=== PATIENT | male | born 2000 | race Caucasian/White ===

== ENCOUNTER 2025-04-14 06:52 | Emergency (ER) | payer SELFPAY ==
[2025-04-14] VITALS (12 sets, daily range): BP systolic 103–132; BP diastolic 38–80; PULSE 97–112; RESP 14–24; TEMP 36.4–36.6; O2SAT 99–100
--- NOTE | ~2025-04-14 | XR_ITS ---
EXAMINATION: XR chest 2V 04/14/2025 07:52 INDICATION: Chest pain PROCEDURE: 2 view chest COMPARISON: No prior studies for comparison. FINDINGS: The lungs are clear. The cardiomediastinal silhouette is within normal limits. There are no pleural effusions. There is no pneumothorax suspected. IMPRESSION: 1: NO ACUTE CARDIOPULMONARY DISEASE. Reviewed, dictated and finalized at location A.
--- NOTE | ~2025-04-14 | CT_ITS ---
Clinical Indication: Tachycardia, dyspnea CT Scan of the Chest with Contrast: Technique: Contiguous sections were acquired throughout the chest after intravenous administration of 100 cc of Omnipaque 350. Dose reduction technique was used on this scan by utilizing automated expos ure control and iterative reconstruction technique. The dose-length product (DLP) was 246.54 mGy-cm. Findings: There is no evidence of any significant mediastinal, hilar or axillary lymphadenopathy. There is no f illing defect in the pulmonary arterial tree to suggest pulmonary embolus. There is no evidence of ao rtic dissection or aneurysm. There is no evidence of pleural or pericardial effusion. The lungs are clear. No pulmonary nodules or infiltrates are noted. Images through the upper abdomen reveal partially imaged splenomegaly. Impression: No evidence of pulmonary embolus, aortic dissection, or aortic aneurysm. Clear lungs. Partially imaged splenomegaly, of uncertain etiology. Reviewed, dictated and finalized at [facility]. Impression: No evidence of pulmonary embolus, aortic dissection, or aortic aneurysm. Clear lungs. Partially imaged splenomegaly, of uncertain etiology.
--- NOTE | 2025-04-14 06:55 | ECG_ITS ---
Test Date: 2025-04-14 06:59:29 Measurements Intervals [place] Rate: 107 P: 22 ME: 146 QRS: 53 QRSD: 102 T: 73 QT: 327 QTc: 438 Interpretive Statements SINUS TACHYCARDIA WITH OCCASIONAL ECTOPIC PREMATURE COMPLEXES MODERATE ST DEPRESSION [0.05+ mV ST DEPRESSION] No previous ECG available for comparison Electronically Signed On 04-14-2025 16:01:57 CDT by Matt Waldron M.D.
[2025-04-14 07:14] LABS: Basophils Percent Auto 0.5 % (0.2-1.2); Eosinophils Absolute Auto 0.1 K/mm3 (0-0.3); Eosinophils Percent Auto 1.3 % (0-4.4); Hematocrit 30.8 % (42.0-52.0); Hemoglobin 9.7 g/dL (14.0-18.0); Immature Granulocyte Absolute 0.02 K/mm3 (0.00-0.031); Immature Granulocyte Percent A 0.5 % (0-0.5); Lymphocytes Absolute Auto 1.34 K/mm3 (0.9-3.2); Lymphocytes Percent Auto 34.4 % (18.3-44.2); Mean Corpuscular HGB Conc 31.5 g/dl (32-36); Mean Corpuscular Hemoglobin 23.2 pg (26-34); Mean Corpuscular Volume 73.5 fl (80-100); Mean Platelet Volume 8.8 fl (7.4-10.4); Monocytes Absolute Auto 0.2 K/mm3 (0.1-0.6); Monocytes Percent Auto 5.7 % (2.6-8.5); Neutrophils Absolute Auto 2.2 K/mm3 (1.3-6.7); Neutrophils Percent Auto 57.6 % (45.5-73.1); Platelet Count Result 159 k/mm3 (150-375); Red Blood Count 4.19 M/mm3 (4.6-6.20); Red Cell Distribution Width 17.8 % (11.5-14.5); White Blood Count 3.9 K/mm3 (4.5-10.0)
[2025-04-14 07:24] LABS: Alanine Aminotransferase 15 U/L (6-50); Albumin Level 3.6 g/dL (3.5-5.1); Alkaline Phosphatase 74 U/L (38-126); Anion Gap 7 mmol/L (4-12); Aspartate Amino Transferase 23 U/L (17-59); Bilirubin,Total 0.8 mg/dL (0.2-1.3); Blood Urea Nitrogen 13 mg/dL (9-20); Calcium 8.3 mg/dL (8.4-10.2); Carbon Dioxide 24 mmol/L (22-30); Chloride 105 mmol/L (98-107); Estimated CRCL calculation 134 ml/min; Estimated Glomerular Filt Rate > 60; Glucose 109 mg/dL (65-110); Lipase 105 U/L (23-300); Potassium 4.5 mmol/L (3.4-5.0); Sodium 136 mmol/L (137-145)
[2025-04-14 07:35] LABS: INR 1.2; Prothrombin Time 15.6 Seconds (11.1-14.7)
[2025-04-14 07:36] LABS: Troponin I 0.029 ng/mL (0.000-0.034)
[2025-04-14 07:37] LABS: Partial Thromboplastin Time 32.8 Seconds (22.3-36.8)
--- NOTE | 2025-04-14 07:47 | ED_ITS ---
HPI - Chest Pain General Chief Complaint: Chest Pain Stated Complaint: substernal cp x 2.5 weeks Time Seen by Provider: 04/14/25 07:03 History of Present Illness HPI narrative: Patient states that for the last 2 weeks he has been noticing chest pain, he will also sweating some shortness of breath this is never happened to him before. No drug use or supplement use or energy drinks, only occasional marijuana. Related Data Allergies Allergy/AdvReac Type Severity Reaction Status Date / Time No Known Allergies Allergy Verified 04/14/25 06:55 Review of Systems 2 Review of Systems: All systems reviewed & are unremarkable except as noted in HPI and below Exam 2 Narrative: EXAMINATION OF ORGAN SYSTEMS/BODY AREAS: Constitutional: Vital signs per nursing GENERAL: Appears slightly anxious HEAD: Normal with no signs of head trauma. EYES: EOMI, conjunctiva normal ENT: Hearing grossly intact LUNGS: Nonlabored breathing. HEART: Tachycardic ABD: [Soft], [nontender to palpation] EXT: Normal range of motion SKIN: [No rashes or lesions.] NEURO: [Alert and oriented x 3. No gross focal sensory or strength deficits.] PSYCH: Anxious affect Course Vital Signs Vital signs: Vital Signs Temperature 97.9 F 04/14/25 06:51 Pulse Rate 112 H 04/14/25 06:51 Respiratory Rate 21 H 04/14/25 06:51 Blood Pressure 130/51 L 04/14/25 06:51 Pulse Oximetry 99 04/14/25 06:51 Oxygen Delivery Room Air 04/14/25 06:51 Temperature 97.6 F 04/14/25 11:15 Pulse Rate 101 H 04/14/25 11:15 Respiratory Rate 14 04/14/25 11:15 Blood Pressure 126/54 L 04/14/25 11:15 Pulse Oximetry 99 04/14/25 11:15 Oxygen Delivery Room Air 04/14/25 07:07 MDM - Chest Pain MDM Narrative Medical decision making narrative: Patient presenting with chest pain and shortness of breath ongoing for last 2 weeks with sweating, on exam he appears slightly anxious and slightly tachycardic. EKG my independent interpretation shows sinus tachycardia with PACs, rate 107, NH 146, QRS 102, QTC 390, normal axis, no obvious ST elevations, some ST depression in lateral leads. My differential includes anxiety, malignancy, thyroid, ACS, PE. Workup initiated. Two troponins within normal limits, repeat EKG at 9:42 a.m. on my independent interpretation shows sinus rhythm rate 98, NH 137, QRS 105, QTC 443, no significant ST elevation, same ST depression as before. D-dimer elevated so a CT PE obtained which does show splenomegaly. Labs are notable for low WBC, hemoglobin, platelet compared to normal healthy adult male, I did discuss this case with blacking wheel tender Dr Caceres, while he recommended additional labs and close follow-up in clinic which I have ordered and have discussed with the patient along with strict return precautions. He now tells me that he was sick recently and had gotten antibiotics for his dad for presumed pneumonia, had not seen a doctor for this. [place] test here was negative, I did let him know my concerns for that this could have been recent viral illness causing aplastic anemia or possible malignancy he needs to follow up with heme Onc. Patient agreeable to this plan. Strict return precautions discussed. At time of discharge he was resting comfortably in no distress with normal vital signs. Counseled to avoid contact sports. Patient expresses understanding Lab Data 04/14/25 07:06 04/14/25 07:06 Labs: Lab Results 04/14/25 04/14/25 04/14/25 Range/Units 07:06 07:06 08:47 WBC 3.9 L (4.5-10.0) K/mm3 RBC 4.19 L (4.6-6.20) M/mm3 Hgb 9.7 L (14.0-18.0) g/dL Hct 30.8 L (42.0-52.0) % MCV 73.5 L (80-100) fl MCH 23.2 L (26-34) pg MCHC 31.5 L (32-36) g/dl RDW 17.8 H (11.5-14.5) % Plt Count 159 (150-375) k/mm3 MPV 8.8 (7.4-10.4) fl Immature Gran % (Auto) 0.5 (0-0.5) % Neut % (Auto) 57.6 (45.5-73.1) % Lymph % (Auto) 34.4 (18.3-44.2) % [place] % (Auto) 5.7 (2.6-8.5) % Eos % (Auto) 1.3 (0-4.4) % Baso % (Auto) 0.5 (0.2-1.2) % Lymph # (Auto) 1.34 (0.9-3.2) K/mm3 [place] # (Auto) 0.2 (0.1-0.6) K/mm3 Eos # (Auto) 0.1 (0-0.3) K/mm3 Baso # (Auto) 0.0 (0.0-0.1) K/mm3 Abs Immat Gran (auto) 0.02 (0.00-0.031) K/mm3 Absolute Neuts (auto) 2.2 (1.3-6.7) K/mm3 Absolute Nucleated RBC 0.000 (0.0-0.012) K/mm3 Band Neutrophils % Not Reportable Nucleated RBC % 0.0 (0.0-0.2) % Platelet Estimate Adequate (Adequate) Hypochromasia 1+ Schistocytes None seen PT 15.6 H (11.1-14.7) Seconds INR 1.2 APTT 32.8 (22.3-36.8) Seconds D-Dimer 1.10 H Cancelled (<0.48) ug/mL Sodium 136 L (137-145) mmol/L Potassium 4.5 (3.4-5.0) mmol/L Chloride 105 (98-107) mmol/L Carbon Dioxide 24 (22-30) mmol/L Anion Gap 7 (4-12) mmol/L BUN 13 (9-20) mg/dL Creatinine 0.71 (0.7-1.3) mg/dL Estim Creat Clear Calc 134 ml/min Estimated GFR > 60 (59 - ) Glucose 109 (65-110) mg/dL Calcium 8.3 L (8.4-10.2) mg/dL Iron (49-181) ug/dL TIBC (265-497) ug/dL % Saturation Total Bilirubin 0.8 (0.2-1.3) mg/dL AST 23 (17-59) U/L ALT 15 (6-50) U/L Alkaline Phosphatase 74 (38-126) U/L Lactate Dehydrogenase (120-246) U/L Troponin I 0.029 (0.000-0.034) ng/mL Total Protein 8.0 (6.3-8.2) g/dL Albumin 3.6 (3.5-5.1) g/dL Lipase 105 (23-300) U/L Vitamin B12 (239-931) pg/mL Folate (2.76->20) ng/mL TSH (Reflex) 3.280 (0.465-4.68) uIU/mL Urine Opiates Screen Negative (Negative) Urine Methadone Screen Negative (Negative) Ur Barbiturates Screen Negative (Negative) Ur Phencyclidine Scrn Negative (Negative) Ur Amphetamine Screen Negative (Negative) U Benzodiazepines Scrn Negative (Negative) Urine Cocaine Screen Negative (Negative) U Cannabinoids Screen Positive A (Negative) Monoscreen (Negative) 04/14/25 Range/Units 09:42 WBC (4.5-10.0) K/mm3 RBC (4.6-6.20) M/mm3 Hgb (14.0-18.0) g/dL Hct (42.0-52.0) % MCV (80-100) fl MCH (26-34) pg MCHC (32-36) g/dl RDW (11.5-14.5) % Plt Count (150-375) k/mm3 MPV (7.4-10.4) fl Immature Gran % (Auto) (0-0.5) % Neut % (Auto) (45.5-73.1) % Lymph % (Auto) (18.3-44.2) % [place] % (Auto) (2.6-8.5) % Eos % (Auto) (0-4.4) % Baso % (Auto) (0.2-1.2) % Lymph # (Auto) (0.9-3.2) K/mm3 [place] # (Auto) (0.1-0.6) K/mm3 Eos # (Auto) (0-0.3) K/mm3 Baso # (Auto) (0.0-0.1) K/mm3 Abs Immat Gran (auto) (0.00-0.031) K/mm3 Absolute Neuts (auto) (1.3-6.7) K/mm3 Absolute Nucleated RBC (0.0-0.012) K/mm3 Band Neutrophils % Nucleated RBC % (0.0-0.2) % Platelet Estimate (Adequate) Hypochromasia Schistocytes PT (11.1-14.7) Seconds INR APTT (22.3-36.8) Seconds D-Dimer (<0.48) ug/mL Sodium (137-145) mmol/L Potassium (3.4-5.0) mmol/L Chloride (98-107) mmol/L Carbon Dioxide (22-30) mmol/L Anion Gap (4-12) mmol/L BUN (9-20) mg/dL Creatinine (0.7-1.3) mg/dL Estim Creat Clear Calc ml/min Estimated GFR (59 - ) Glucose (65-110) mg/dL Calcium (8.4-10.2) mg/dL Iron 40 L (49-181) ug/dL TIBC 282 (265-497) ug/dL % Saturation Pending Total Bilirubin (0.2-1.3) mg/dL AST (17-59) U/L ALT (6-50) U/L Alkaline Phosphatase (38-126) U/L Lactate Dehydrogenase 204 (120-246) U/L Troponin I 0.030 (0.000-0.034) ng/mL Total Protein (6.3-8.2) g/dL Albumin (3.5-5.1) g/dL Lipase (23-300) U/L Vitamin B12 436.0 (239-931) pg/mL Folate 4.7 (2.76->20) ng/mL TSH (Reflex) (0.465-4.68) uIU/mL Urine Opiates Screen (Negative) Urine Methadone Screen (Negative) Ur Barbiturates Screen (Negative) Ur Phencyclidine Scrn (Negative) Ur Amphetamine Screen (Negative) U Benzodiazepines Scrn (Negative) Urine Cocaine Screen (Negative) U Cannabinoids Screen (Negative) Monoscreen Negative (Negative) Discharge Plan Discharge Clinical Impression: Atypical chest pain, Anemia, Splenomegaly Patient Disposition: Home Condition: Stable Instructions: Chest Pain (ED), Anemia (ED) Additional Instructions: We did find today that you have low blood cells --your red blood cells, white blood cells, and platelets are lower than normal. You did have an enlarged spleen on your CT. It is very important for you to follow-up with the Hem-Onc doctor for further testing and evaluation and treatment. Please try to avoid any contact sports. Come back to the ER immediately if your symptoms get worse. Try to keep hydrated. Patient Language: Jordanian Follow-up/Referrals: Finn Caceres MD [Physician] - 2 Days UNKNOWN,DOCTOR [Primary Care Provider] -
[2025-04-14 07:50] LABS: Hypochromasia 1+; Platelet Estimate Adequate (Adequate); Schistocytes None Seen
[2025-04-14 09:14] LABS: Amphetamine Screen Urine Negative (Negative); Barbiturate Screen Urine Negative (Negative); Benzodiazepines Screen Urine Negative (Negative); Cannabinoid Screen Urine Positive (Negative); Cocaine Screen Urine Negative (Negative); Methadone Screen Urine Negative (Negative); Opiate Screen Urine Negative (Negative); Phencyclidine Screen Urine Negative (Negative)
--- NOTE | 2025-04-14 09:34 | ECG_ITS ---
Test Date: 2025-04-14 09:42:46 Measurements Intervals [place] Rate: 98 P: 28 UT: 137 QRS: 64 QRSD: 105 T: 68 QT: 346 QTc: 443 Interpretive Statements SINUS RHYTHM MODERATE ST DEPRESSION [0.05+ mV ST DEPRESSION] LEFT VENTRICULAR HYPERTROPHY ABNORMAL ECG Compared to ECG 04/14/2025 06:59:29 Sinus tachycardia no longer present ST (T wave) deviation still present Electronically Signed On 04-15-2025 09:37:00 CDT by Praveen Rodriguez M.D.
[2025-04-14 09:56] LABS: Lactate Dehydrogenase 204 U/L (120-246)
[2025-04-14] MEDS: LACTATED RINGERS 1,000 ML 999 ML IV CONT (10:00)
[2025-04-14 10:22] LABS: Monoscreen Negative (Negative); Negative Monotest Control Negative (Negative); Positive Monotest Control Positive (Positive)
[2025-04-14 11:03] LABS: Folic Acid 4.7 ng/mL (2.76->20)
[2025-04-14 11:04] LABS: Iron 40 ug/dL (49-181)
[2025-04-14 11:14] LABS: Percent Iron Saturation 14 % (20-50)
== END 2025-04-14 11:22 | disposition home or self-care (01) ==
PROVIDERS: Emergency Medicine; Emergency Provider Emergency Medicine
DX: R07.89 Other chest pain (principal); D64.9 Anemia, unspecified; R16.1 Splenomegaly, not elsewhere classified
CPT/HCPCS: 36415; 71046; 71275; 80053; 80307; 82607; 82746; 83540; 83550; 83615; 83690; 84443; 84484; 85025; 85380; 85610; 85730; 86308; 93005; 96360; 99284; J7120; Q9967

== ENCOUNTER 2025-06-30 11:18 | Emergency (ER) | payer SELFPAY ==
--- NOTE | 2025-06-30 11:19 | ED.UPPEXIN ---
HPI - Extremity Injury (Upper) General Chief Complaint: Extremity Problem,Nontraumatic Stated Complaint: Left Hand Swollen/Pain Time Seen by Provider: 06/30/25 11:19 Source: patient Mode of arrival: ambulatory Limitations: no limitations History of Present Illness HPI narrative: Feng is a 25-year-old male patient presenting to the clinic today with complaints left hand swelling, itching, and pain. He thinks he may have been bit by an insect. Has a inflamed area to the palm just below the 3rd and 4th fingers of the left hand. Area is very itchy and mildly tender to palpation. States that he is having some numbness and tingling going into the 3rd and 4th fingers due to the swelling. Has been taking Tylenol for the pain. Rates the pain currently 05/10. Related Data Allergies Allergy/AdvReac Type Severity Reaction Status Date / Time No Known Allergies Allergy Verified 06/30/25 11:28 [facility] Comments At the time of my signature, I reviewed and agree with the nursing past medical, surgical, social, and family history. There is no relevant family history pertinent to the patient complaint. Course Course Emergency Course: Portions of this record may have been created with voice recognition software. Level of Care: Express Care Visit Vital Signs Vital signs: Vital Signs Temperature 36.6 C 06/30/25 11:26 Pulse Rate 106 H 06/30/25 11:26 Respiratory Rate 20 06/30/25 11:26 Blood Pressure 130/45 L 06/30/25 11:26 Pulse Oximetry 100 06/30/25 11:26 Oxygen Delivery Room Air 06/30/25 11:26 Temperature 36.6 C 06/30/25 11:26 Pulse Rate 106 H 06/30/25 11:26 Respiratory Rate 20 06/30/25 11:26 Blood Pressure 130/45 L 06/30/25 11:26 Pulse Oximetry 100 06/30/25 11:26 Oxygen Delivery Room Air 06/30/25 11:26 Vital signs reviewed MDM - Extremity Injury (Upper) MDM Narrative Medical decision making narrative: At the time of visit patient is resting comfortably on the exam table. Patient appears to be nontoxic. Complaints left hand swelling, itching, and pain. He thinks he may have been bit by an insect. Has a inflamed area to the palm just below the 3rd and 4th fingers of the left hand. Area is very itchy and mildly tender to palpation. States that he is having some numbness and tingling going into the 3rd and 4th fingers due to the swelling. Has been taking Tylenol for the pain. Rates the pain currently 6/10. Plan: I suspect patient has a general allergic to an insect bite to the left hand. Prescription for triamcinolone cream was sent to the pharmacy. Encouraged patient to take Tylenol/Motrin as needed for pain any can do Benadryl for itching and swelling. Watch for signs and symptoms of infection. Supportive measures were discussed with the patient and they voiced understanding discharge instructions and agrees to treatment plan. Return precautions reviewed Differential Diagnosis Differential diagnosis: Likely other (insect bite, cellulitis, skin infection, allergic reaction) Discharge Plan Discharge Clinical Impression: Insect bite Qualifiers: Encounter type: initial encounter Site of insect bite: hand Laterality: left Qualified Code(s): S60.562A - Insect bite (nonvenomous) of left hand, initial encounter Patient Disposition: Home Condition: Stable Instructions: Antibiotic Form, Insect Bite or Sting (ED), General Allergic Reaction (ED) Additional Instructions: Apply triamcinolone cream as directed May apply cool compress to help alleviate pain and swelling Avoid scratching as this can cause a secondary infection May take Benadryl 25-50mg every 6 hours as needed for itching. Follow up with your PCP in 3-5 days if symptoms persist or sooner if they worsen Go to the Emergency Room if symptoms worsen- fever, rash spreading with treatment, shortness of breath, tongue swelling, drooling, or chest pain Patient Language: Jordanian Prescriptions: New triamcinolone acetonide 0.1 % cream 1 applic topical BID 7 Days Qty: 30 0RF Follow-up/Referrals: UNKNOWN,DOCTOR [Non-Staff] - Time of Disposition: 11:34 Quality NIHSS Nursing Documentation ED NIHSS nursing documentation: reviewed/agree
[2025-06-30 11:26] VITALS: BP 130/45; PULSE 106; RESP 20; TEMP 36.6; O2SAT 100
== END 2025-06-30 11:38 | disposition home or self-care (01) ==
PROVIDERS: Emergency Provider Nurse Practitioner Family
DX: S60.562A Insect bite (nonvenomous) of left hand, initial encounter (principal); W57.XXXA Bitten or stung by nonvenomous insect and other nonvenomous arthropods, initial encounter
CPT/HCPCS: 99213; G0463

== ENCOUNTER 2025-08-08 10:03 | Emergency (ER) | payer SELFPAY ==
--- NOTE | ~2025-08-08 | XR_ITS ---
EXAMINATION: XR chest 2V DATE: 08/08/2025 10:44 INDICATION: Cough and fever TECHNIQUE: PA and lateral views of the chest were obtained. COMPARISON: Chest radiograph and CT dated 04/14/25 FINDINGS: The lungs remain clear with no focal airspace opacities, pulmonary edema, pleural effusion or pneumothorax. The cardiomediastinal silhouette is normal. Visualized bones and soft tissues are unremarkable. IMPRESSION: 1. Normal chest radiograph. Reviewed, dictated and finalized at location A. IMPRESSION: 1. Normal chest radiograph.
[2025-08-08 10:12] VITALS: BP 125/65; PULSE 93; RESP 16; TEMP 36.7; O2SAT 100
--- NOTE | 2025-08-08 10:32 | ED_ITS ---
HPI - URI/Sore Throat General Chief Complaint: Upper Respiratory Infection Stated Complaint: chest pains, cough Time Seen by Provider: 08/08/25 10:32 Source: patient Mode of arrival: ambulatory Limitations: no limitations History of Present Illness HPI Narrative: 25 y/o male presented for c/o cough and chest congestion and subjective fever for 10 days. Endorses right anterior chest pain when coughing or taking deep breath. Endorses cough is resulting in vomiting. Taking Tylenol only for symptoms. Denies sob, wheezing, or lethargy. Daily 1ppd smoker. Related Data Allergies Allergy/AdvReac Type Severity Reaction Status Date / Time No Known Drug Allergies Allergy none Verified 08/08/25 10:40 Review of Systems Review of Systems: CONSTITUTIONAL: Denies body aches, fever, chills, or sweats. EYES: Denies visual changes, redness, or discharge. ENT: Denies rhinorrhea, congestion, sore throat, or otalgia. CARDIOVASCULAR: Denies chest pain, palpitations, or edema. RESPIRATORY: Reports cough, wheezing. GASTROINTESTINAL: Denies abdominal pain, nausea, vomiting, or diarrhea. SKIN: Denies rash, itching, or wounds. MUSCULOSKELETAL: Denies back pain, joint pain, or myalgia. NEUROLOGIC: Denies headache, PSYCH: Denies depression or anxiety. All systems reviewed & are unremarkable except as noted in HPI and below [facility] Social History Social History (Updated 08/08/25 @ 10:40 by Annetta Paz, WELDING ENGINEER) Smoking packs per day: 1 Smoking cigarettes per day: 20.0 Smoking status: Current every day smoker Tobacco type: cigarettes Substance use type: marijuana Comments At time of signature, I have reviewed and agree with nursing past medical, surgical, social and family history unless otherwise noted. Please see nursing chart for further information. There is no relevant family history pertinent to the presenting complaint Exam Narrative: GENERAL: Well-appearing, in no acute distress. EYES: EOMI. No redness or drainage. Conjunctivae normal. ENT: Mucous membranes pink and moist. No rhinorrhea. TMs normal bilaterally. Throat normal. Uvula midline. NECK: Normal AROM. Supple. CHEST: No respiratory distress. Wheezing to bases. 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 HEART: Regular rate and rhythm. No murmur appreciated. ABDOMEN: Soft, nontender, nondistended, normal active bowel sounds. SKIN: Warm, dry, no rash. Capillary refill normal. Normal skin turgor. NEURO: Alert and oriented x3. Gait steady. PSYCH: Normal affect. Course Course Emergency Course: Patient is aware of diagnosis, understands and agrees to treatment plan. Anticipatory guidance given. Patient agrees to follow-up as directed and is aware of reasons to seek care at the emergency department. Portions of this record may have been created with voice recognition software Level of Care: Express Care Visit Vital Signs Vital signs: Vital Signs Temperature 98.1 F 08/08/25 10:12 Pulse Rate 93 08/08/25 10:12 Respiratory Rate 16 08/08/25 10:12 Blood Pressure 125/65 08/08/25 10:12 Pulse Oximetry 100 08/08/25 10:12 Oxygen Delivery Room Air 08/08/25 10:12 Temperature 98.1 F 08/08/25 10:12 Pulse Rate 93 08/08/25 10:12 Respiratory Rate 16 08/08/25 10:12 Blood Pressure 125/65 08/08/25 10:12 Pulse Oximetry 100 08/08/25 10:12 Oxygen Delivery Room Air 08/08/25 10:12 MDM - URI/Sore Throat MDM Narrative Medical decision making narrative: Discussed physical exam findings and chest x-ray. Reviewed prescriptions with pt. Advised supportive measures and signs/symptoms to go to the ER. Pt is appropriate for outpt treatment and f/u. Differential Diagnosis Differential diagnosis: Likely upper respiratory infection, sinusitis, viral infection, bronchitis, pharyngitis and other (Angioedema, perforation, asthma, pneumonia, PE, tension pneumothorax, cardiac tamponade MT, pericarditis, pleural effusion, CHF, bronchitis, cardiac arrhythmia) Discharge Plan Discharge Clinical Impression: Bronchitis Patient Disposition: Home Condition: Stable Instructions: Antibiotic Form, Acute Bronchitis (ED) Additional Instructions: Take medication as directed albuterol inhaler is as needed for shortness of breath/wheezing Recommendations: over the counter Cough syrup may cause drowsiness; avoid driving or take it at night time. Tylenol every 8 hours as needed for pain Rest and stay hydrated Flonase spray and Zyrtec (or Claritin/Yojana) if you have nasal congestion Follow up with your primary care provider as needed in 1 week Go to the ER for worsening symptoms or concerns Patient Language: Gambian Prescriptions: New methylprednisolone [Medrol (Sai)] 4 mg tablets,dose pack See Rx Instructions .ROUTE .COMPLEX Qty: 21 0RF Rx Instructions: orally per package directions albuterol sulfate 90 mcg/actuation HFA aerosol inhaler 2 inh inhalation QID PRN (Reason: shortness of breath or wheezing) Qty: 8.5 0RF amoxicillin-pot clavulanate 875-125 mg tablet 1 tablet PO Q12H 7 Days Qty: 14 0RF Follow-up/Referrals: UNKNOWN,DOCTOR [Primary Care Provider] Time of Disposition: 10:57
== END 2025-08-08 11:06 | disposition home or self-care (01) ==
PROVIDERS: Emergency Provider Nurse Practitioner Family
DX: J40 Bronchitis, not specified as acute or chronic (principal); F17.210 Nicotine dependence, cigarettes, uncomplicated; F12.90 Cannabis use, unspecified, uncomplicated
CPT/HCPCS: 71046; 99213; G0463

== ENCOUNTER 2025-11-15 11:01 | Emergency (ER) | payer SELFPAY ==
[2025-11-15 11:22] VITALS: BP 143/43; PULSE 106; RESP 18; TEMP 36.9; O2SAT 100
--- NOTE | 2025-11-15 11:22 | ED.GENADULT ---
HPI - General Adult General Chief complaint: Extremity Injury, Lower Stated complaint: Both Legs Swelling Time Seen by Provider: 11/15/25 11:23 Source: patient, RN notes reviewed and old records reviewed Mode of arrival: ambulatory Limitations: no limitations History of Present Illness HPI narrative: 25-year-old male presents to the [facility] with bilateral pitting edema, abdominal distension and petechiae. patient reports abdominal distension approximately 3 months. Reports right upper quadrant pain for unknown amount of time. Patient reports 10 day of increasing bilateral lower leg edema. States he has had the petechiae for awhile patient denies any fevers. Denies any IV drug use. Denies any liver or kidney issues. Denies any heart issues in the past. Related Data Home Medications ?Medication ?Instructions ?Recorded ?Confirmed ?Last Taken ?Type No Home Medications 11/15/25 11/15/25 Unknown History Allergies Allergy/AdvReac Type Severity Reaction Status Date / Time No Known Drug Allergies Allergy none Verified 11/15/25 16:38 Review of Systems Review of Systems: All systems reviewed & are unremarkable except as noted in HPI and below Constitutional: Constitutional: Reports no additional constitutional complaints ENT: Reports system reviewed and no additional complaints, except as documented Cardiovascular: Cardiovascular: Reports no additional cardiovascular complaints, Denies chest pain and Denies dyspnea Respiratory: Respiratory: Reports no additional respiratory complaints, Denies chest congestion, Denies cough and Denies dyspnea Gastrointestinal: Gastrointestinal: Reports as per HPI Musculoskeletal: Musculoskeletal: Reports as per HPI Integumentary/Breasts: Skin/Breast: Reports as per HPI [facility] Social History Social History (Updated 08/08/25 @ 10:40 by Annetta Paz, NET ARCHITECT) Smoking packs per day: 1 Smoking cigarettes per day: 20.0 Years smoked: 9 Smoking pack-years: 9.00 Smoking status: Current every day smoker Tobacco type: cigarettes Alcohol intake: former Drinks per week: 1 Substance use: current Substance use type: marijuana Other substance usage details: smokes Last use: 11/15/25 Lack of Transportation: No Lack of Food: Never True Current Housing: I Have Housing Concerned About Future Housing: No Difficulty Paying Gas/Electric Bills: No Difficulty Paying for Meds: No Currently Unemployed: YES Education: High School Diploma/GED Difficulty w/ Childcare or Family Care: No Spiritual care concerns: No Comments At the time of my signature, I reviewed and agree with the nursing past medical, surgical, social, and family history. There is no relevant family history pertinent to the patient complaint. Exam Const: General: cooperative, no acute distress, well developed, alert, tired appearing, uncomfortable, well nourished, edematous and other ( much older than stated age) Nutritional Appearance: edematous Orientation/consciousness: patient oriented x3 Limitations: no limitations HENMT: Head: normal to inspection Teeth and gingiva: poor dentition Eyes: General: appearance normal, both eyes and all related structures Alignment and Position: alignment normal Neck: Neck: normal visual inspection, full ROM, no lymphadenopathy and no meningeal signs Chest: Chest palpation & inspection: normal inspection of the chest Resp: Effort & Inspection: normal respiratory effort and able to speak in complete sentences Cardio: Rate: regular rate GI: Inspection: distended GI Palp: Yes Firmness to palpation present (GI) Skin: General skin exam: dry skin and petechiae Other: petechiae bilateral legs, pale Neuro: General: patient oriented x3, gait normal, moves all extremities and no meningeal signs Cognition (Neuro): normal cognition Speech: normal speech Gait exam (Neuro): Normal gait present Extrem: General: normal to inspection, full ROM, capillary refill normal and normal gait Other: bilateral pitting edema +2 Psych: Appearance: grossly normal and well kempt Mental Status: mental status grossly normal Speech and movement: Normal speech and movement present and Clear speech present Affect: normal affect Attitude: cooperative Course Course Level of Care: Express Care Visit Vital Signs Vital signs: Vital Signs Temperature 98.5 F 11/15/25 11:22 Pulse Rate 106 H 11/15/25 11:22 Respiratory Rate 18 11/15/25 11:22 Blood Pressure 143/43 H 11/15/25 11:22 Pulse Oximetry 100 11/15/25 11:22 Oxygen Delivery Room Air 11/15/25 11:22 Temperature 98.5 F 11/15/25 11:22 Pulse Rate 106 H 11/15/25 11:22 Respiratory Rate 18 11/15/25 11:22 Blood Pressure 143/43 H 11/15/25 11:22 Pulse Oximetry 100 11/15/25 11:22 Oxygen Delivery Room Air 11/15/25 11:22 reviewed MDM MDM Narrative Medical decision making narrative: patient sitting in exam room. Patient appears uncomfortable, chronically ill in appearance. Has significant edema, petechiae, abdominal distension and. Patient is needing higher level of care rule out heart failure, liver disease, kidney disease, platelet issues. Patient transferred for higher level of care to [facility], patient request. Patient will have his grandfather drive him, declined EMS All questions have been answered, and the patient deny any further questions. Some parts of this dictation were generated by voice recognition software and may contain typographical and/or grammatical inaccuracies. Differential Diagnosis Differential Diagnosis: CHF, TTP, liver disease, hepatitis, kidney disease, blood clots Discharge Plan Discharge Clinical Impression: Bilateral edema of lower extremity Patient Disposition: Acute Care Hospital Condition: Guarded Prognosis Patient Language: Divehi Prescriptions: No Action No Home Medications Follow-up/Referrals: PHYSICIAN NOT ON STAFF,NONSTAFF [Primary Care Provider]
== END 2025-11-15 11:43 | disposition short-term general hospital (02) ==
PROVIDERS: Emergency Provider Nurse Practitioner
DX: R60.0 Localized edema (principal); F17.210 Nicotine dependence, cigarettes, uncomplicated; F12.90 Cannabis use, unspecified, uncomplicated
CPT/HCPCS: 99212; G0463

== ENCOUNTER 2025-11-15 12:10 | Inpatient (IN) | payer SELFPAY ==
[2025-11-15] VITALS (15 sets, daily range): BP systolic 122–138; BP diastolic 34–53; PULSE 97–132; RESP 14–31; TEMP 36.7–37; O2SAT 96–100; BMI 26.9
--- NOTE | ~2025-11-15 | XR_ITS ---
Examination: XR chest 2V Clinical History: cp, sob, RED OBANDO ON LEGS SINCE 10/27 Comparison: 08/08/2025 Technique: PA and Lateral Findings: Heart size prominent. Diffusely increased interstitial markings. No acute bony abnormality. IMPRESSION: 1. Pericardial effusion and/or cardiomegaly. 2. Interstitial pulmonary edema. Reviewed, dictated and finalized at location R. OR AGRICULTURAL ASSISTANT
--- NOTE | ~2025-11-15 | CT_ITS ---
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 TECHNIQUE: CTA scan with 3D Reconstructions of the chest, CT of the abdomen and pelvis was performed with contrast Isovue 300, 92cc injected IV. One or more of the following dose reduction techniques were used: automated exposure control, adjustment of the mA and/or kV according to patient size, use of iterative reconstruction technique. Unless otherwise stated, incidental findings do not require dedicated follow up imaging FINDINGS: CT chest: No significant coronary calcification is present ([id number]) LUNGS: Contrast bolus adequate, there is no pulmonary embolism identified. Moderate pulmonary venous congestion. No tracheomalacia. No bronchiectasis. No significant emphysematous or pulmonary fibrotic changes. HEART AND PERICARDIUM: Severe cardiomegaly. Large simple appearing pericardial effusion. AORTA: Normal caliber aorta. MEDIASTINUM: Unremarkable. THYROID: Subcentimeter thyroid nodules. CT abdomen: LIVER: The liver appears enlarged with a heterogeneous appearance. The liver measures 22 cm. SPLEEN: The spleen appears prominent. Spleen measures 17 cm.. KIDNEYS: Right Kidney: Unremarkable. No calculi. No hydronephrosis. Left Kidney: Unremarkable. No calculi. No hydronephrosis ADRENAL GLANDS: Unremarkable. PANCREAS: GALLBLADDER/BILIARY: There is hyperemia of the gallbladder mucosa with small amount of pericholecystic fluid, no gross cholelithiasis. STOMACH AND ESOPHAGUS: Visualized stomach and esophagus within normal limits. BOWEL/MESENTERY: No colitis or diverticulitis. Appendix not identified. Ill- defined stranding within the mesentery. No thickened or dilated loops of small bowel. RETROPERITONEUM: Unremarkable AORTA/VASCULATURE: Normal caliber aorta. FREE FLUID OR FREE AIR: Small amount of free fluid.. CT pelvis: SOLID ORGANS/REPRODUCTIVE: Unremarkable. BLADDER: Within normal limits. LYMPHADENOPATHY: No lymphadenopathy. OSSEOUS STRUCTURES: No sclerotic or lytic lesions. No acute rib fractures. OVERLYING SOFT TISSUES: Mild probable soft tissue anasarca. IMPRESSION: 1. Negative for pulmonary embolism. CHF with probable fluid overload. 2. No acute intra-abdominal process. 3. Incidental findings above Reviewed, dictated and finalized at location P. STICAL ENGINEER
--- NOTE | ~2025-11-15 | US_ITS ---
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 Findings: Deep Venous System:Normal flow, augmentation and compressibility. No echogenic thrombus identified. Superficial Venous SystemNo superficial thrombophlebitis. Soft tissues: Soft tissues are unremarkable. Impression: Negative for DVT. Reviewed, dictated and finalized at location P. RAFT CHARTER DISPATCHER Impression: Negative for DVT.
--- NOTE | 2025-11-15 12:19 | ECG_ITS ---
Test Date: 2025-11-15 12:24:25 Measurements Intervals [place] Rate: 106 P: 17 MO: 128 QRS: -12 QRSD: 106 T: 121 QT: 352 QTc: 468 Interpretive Statements SINUS TACHYCARDIA WITH OCCASIONAL VENTRICULAR PREMATURE COMPLEXES DELAYED PRECORDIAL R/S TRANSITION VOLTAGE CRITERIA FOR LVH ST-T WAVE ABNORMALITY IN LAT/HIGH LAT LEADS- CONSIDER ISCHEMIA ABNORMAL ECG Compared to ECG 04/14/2025 09:42:46 Possible ischemia now present Electronically Signed On 11-15-2025 13:03:53 SUPERVISOR CARTOGRAPHY by Ralf Jackman D.O.
--- NOTE | 2025-11-15 12:30 | ED.EXTPRO ---
HPI - Extremity Problem General Chief complaint: Extremity Problem,Nontraumatic Stated complaint: extremity swelling Time Seen by Provider: 11/15/25 12:30 Focused HPI: This is a 25-year-old male that presents to the emergency department for symptoms ongoing over the last month. Reports lower extremity swelling, a rash, abdominal pain, shortness of breath, chest pain. GENERAL: Ill-appearing, well-nourished, and in no acute distress. HEAD: Normocephalic, atraumatic. CHEST: Clear to auscultation. ?No respiratory distress. HEART: Regular rate and rhythm.? NEURO: ?Alert and oriented x3. Patient screened in triage and initial orders placed.? ?Additional care and disposition to be based upon?diagnostic testing and treatment. Related Data Home Medications ?Medication ?Instructions ?Recorded ?Confirmed ?Last Taken ?Type No Home Medications 11/15/25 11/15/25 Unknown History Allergies Allergy/AdvReac Type Severity Reaction Status Date / Time No Known Drug Allergies Allergy none Verified 11/15/25 16:38 Review of Systems Review of Systems: All systems reviewed & are unremarkable except as noted in HPI and below PMFSH Social History Social History (Updated 08/08/25 @ 10:40 by Annetta Paz, TECHNICAL DOCUMENT WRITER) Smoking packs per day: 1 Smoking cigarettes per day: 20.0 Years smoked: 9 Smoking pack-years: 9.00 Smoking status: Current every day smoker Tobacco type: cigarettes Alcohol intake: former Drinks per week: 1 Substance use: current Substance use type: marijuana Other substance usage details: smokes Last use: 11/15/25 Lack of Transportation: No Lack of Food: Never True Current Housing: I Have Housing Concerned About Future Housing: No Difficulty Paying Gas/Electric Bills: No Difficulty Paying for Meds: No Currently Unemployed: YES Education: High School Diploma/GED Difficulty w/ Childcare or Family Care: No Spiritual care concerns: No Exam Narrative: GENERAL: Ill-appearing, well-nourished, and in no acute distress. HEAD: Normocephalic, atraumatic. EYES: EOMI. ENT: Nares clear, no rhinorrhea or epistaxis. Mucous membranes moist. Oropharynx without tonsillar hypertrophy exudate or other lesions. CHEST: No respiratory distress. Rales at the bases. No wheezes or rhonchi HEART: Regular rate and rhythm. No murmur heard. Normal peripheral pulses. ABDOMEN: Soft, nontender, nondistended, normal active bowel sounds. EXTREMITIES: Normal range of motion. No edema. SKIN: Warm, dry, no rash. NEURO: No focal deficits. Alert and oriented x3. PSYCH: Normal mood and affect Course Consultations Cardiology: I have discussed the care of this patient with the following provider: Antonia Funez Vital Signs Vital signs: Vital Signs Temperature 98.2 F 11/15/25 12:11 Pulse Rate 102 H 11/15/25 12:11 Respiratory Rate 18 11/15/25 12:11 Blood Pressure 138/34 L 11/15/25 12:11 Pulse Oximetry 99 11/15/25 12:11 Temperature 98.0 F 11/15/25 16:30 Pulse Rate 132 H 11/15/25 16:30 Respiratory Rate 20 11/15/25 16:30 Blood Pressure 123/40 L 11/15/25 16:30 Pulse Oximetry 100 11/15/25 16:30 Oxygen Delivery Room Air 11/15/25 16:34 [facility] Narrative Medical decision making narrative: Patient presents the emergency department for worsening abdominal pain, dyspnea, lower extremity swelling. Patient is afebrile nontoxic appearing. His vitals are stable. Cbc without leukocytosis. Shows microcytic anemia with hemoglobin of 7.6. Metabolic panel without concerning findings. EKG with nonspecific ST changes. His baseline troponin [place] elevated [place] 0.[place] [address]. CTA chest PE with abdomen pelvis without PE. Shows CHF with fluid overload. Venous Doppler without evidence for DVT. Cardiology was consulted. Patient will be admitted to the hospitalist service Differential Diagnosis Differential Diagnosis: CHF, liver failure, PE, DVT, cancer, pericarditis, myocarditis Lab Data [facility] Lab Attestation statement: I personally reviewed the patient's lab results. 11/15/25 12:41 11/15/25 12:41 Labs: Lab Results 11/15/25 11/15/25 11/15/25 Range/Units 12:41 12:45 13:47 WBC 4.9 (4.5-10.0) K/mm3 RBC 3.37 L (4.6-6.20) M/mm3 Hgb 7.6 L (14.0-18.0) g/dL Hct 25.5 L (42.0-52.0) % MCV 75.7 L (80-100) fl MCH 22.6 L (26-34) pg MCHC 29.8 L (32-36) g/dl RDW 18.9 H (11.5-14.5) % Plt Count 174 (150-375) k/mm3 MPV 9.3 (7.4-10.4) fl Immature Gran % (Auto) 1.2 H (0-0.5) % Neut % (Auto) 68.9 (45.5-73.1) % Lymph % (Auto) 22.1 (18.3-44.2) % Harmon % (Auto) 6.8 (2.6-8.5) % Eos % (Auto) 0.4 (0-4.4) % Baso % (Auto) 0.6 (0.2-1.2) % Lymph # (Auto) 1.08 (0.9-3.2) K/mm3 Harmon # (Auto) 0.3 (0.1-0.6) K/mm3 Eos # (Auto) 0.0 (0-0.3) K/mm3 Baso # (Auto) 0.0 (0.0-0.1) K/mm3 Abs Immat Gran (auto) 0.06 H (0.00-0.031) K/mm3 Absolute Neuts (auto) 3.4 (1.3-6.7) K/mm3 Absolute Nucleated RBC 0.000 (0.0-0.012) K/mm3 Band Neutrophils % Not Reportable Nucleated RBC % 0.0 (0.0-0.2) % Platelet Estimate Adequate (Adequate) Hypochromasia 2+ Anisocytosis 1+ Schistocytes None seen PT 18.4 H (11.1-14.7) Seconds INR 1.5 APTT 33.2 (22.3-36.8) Seconds Sodium 130 L (137-145) mmol/L Potassium 4.5 (3.4-5.0) mmol/L Chloride 104 (98-107) mmol/L Carbon Dioxide 22 (22-30) mmol/L Anion Gap 4 (4-12) mmol/L BUN 14 (9-20) mg/dL Creatinine 0.96 (0.7-1.3) mg/dL Estim Creat Clear Calc 96 ml/min Estimated GFR > 60 (59 - ) Glucose 94 (65-110) mg/dL Lactic Acid 0.9 (0.7-2.0) mmol/L Calcium 7.6 L (8.4-10.2) mg/dL Total Bilirubin 1.2 (0.2-1.3) mg/dL Direct Bilirubin 0.0 (0-0.3) mg/dL AST 21 (17-59) U/L ALT 13 (6-50) U/L Alkaline Phosphatase 118 (38-126) U/L Ammonia 18 (9-30) umol/L Troponin I 0.048 H* (0.000-0.034) ng/mL NT-Pro-B Natriuret Pep 94012 H (19.9-100) pg/mL Total Protein 8.8 H (6.3-8.2) g/dL Albumin 3.2 L (3.5-5.1) g/dL Lipase 64 (23-300) U/L TSH (Reflex) 3.650 (0.465-4.68) uIU/mL Urine Color Dark yellow (Yellow) Urine Appearance Clear (Clear) Urine pH 5.5 (5.0-9.0) Ur Specific [place] 1.023 (1.001-1.035) Urine Protein 3+ H (Negative) mg/dL Urine Glucose (UA) Negative (Negative) mg/dL Urine Ketones Trace H (Negative) mg/dL Ur Blood (Man) 3+ H (Negative) Urine Nitrate Negative (Negative) Urine Bilirubin 1+ H (Negative) Urine Urobilinogen 1.0 (<2.0) mg/dL Add Ur Microanalysis Reviewed Leukocyte Esterase Rfl Negative (Negative) JENNI/UL Urine RBC 21-50 H (0-2) /hpf Urine WBC 6-10 H (0-3) /hpf Ur Squamous Epith Cells Occasional (Few) /hpf Urine Bacteria None seen /hpf Urine Casts 3-5 Hepatitis A IgM Ab Negative (Negative) Hep Bs Antigen Negative (Negative) Hep B Core IgM Ab Negative (Negative) Hepatitis C Ab Screen Negative (Negative) Monoscreen Negative (Negative) Influenza A (RT-PCR) Negative (Negative) Influenza B (RT-PCR) Negative (Negative) RSV (RT-PCR) Negative (Negative) SARS-CoV-2 RNA (RT-PCR) Negative (Negative) Imaging Data Radiologist's impression: ITS Impressions Chest X-Ray 11/15/25 13:11 IMPRESSION: 1. Pericardial effusion and/or cardiomegaly. 2. Interstitial pulmonary edema. Chest/Abdomen/Pelvis CTA 11/15/25 13:44 IMPRESSION: 1. Negative for pulmonary embolism. CHF with probable fluid overload. 2. No acute intra-abdominal process. 3. Incidental findings above Venous Doppler Study 11/15/25 13:49 Impression: Negative for DVT. Critical Care Time Critical Care Time Critical Care Time: Yes Indication: New CHF Time Type: Intermittent Initial evaluation, discuss w/ involved parties, attempting to gather old records: 10 minutes Documenting medical record: 10 minutes Review of results (EKG's, labs, imaging): 5 minutes Serial repeat bedside evaluation: N/A Discussing case with multiple memebers of the care team and consultants: 10 minutes Total Critical Care Time: 35 Discharge Plan Discharge Clinical Impression: New onset of congestive heart failure Anemia Qualifiers: Anemia type: unspecified type Qualified Code(s): D64.9 - Anemia, unspecified Patient Disposition: Still a Patient Condition: Serious
[2025-11-15 12:56] LABS: Hematocrit 25.5 % (42.0-52.0); Hemoglobin 7.6 g/dL (14.0-18.0); Immature Granulocyte Percent A 1.2 % (0-0.5); Lymphocytes Absolute Auto 1.08 K/mm3 (0.9-3.2); Mean Corpuscular HGB Conc 29.8 g/dl (32-36); Mean Corpuscular Hemoglobin 22.6 pg (26-34); Mean Corpuscular Volume 75.7 fl (80-100); Nucleated Red Blood Cells Absolute Auto 0.000 K/mm3 (0.0-0.012); Nucleated Red Blood Cells Perc 0.0 % (0.0-0.2); Platelet Count Result 174 k/mm3 (150-375); Red Blood Count 3.37 M/mm3 (4.6-6.20); White Blood Count 4.9 K/mm3 (4.5-10.0)
[2025-11-15 13:00] LABS: Ammonia 18 umol/L (9-30)
[2025-11-15 13:07] LABS: INR 1.5; Prothrombin Time 18.4 Seconds (11.1-14.7)
[2025-11-15 13:08] LABS: Alanine Aminotransferase 13 U/L (6-50); Albumin Level 3.2 g/dL (3.5-5.1); Alkaline Phosphatase 118 U/L (38-126); Anion Gap 4 mmol/L (4-12); Aspartate Amino Transferase 21 U/L (17-59); Bilirubin,Total 1.2 mg/dL (0.2-1.3); Blood Urea Nitrogen 14 mg/dL (9-20); Calcium 7.6 mg/dL (8.4-10.2); Carbon Dioxide 22 mmol/L (22-30); Chloride 104 mmol/L (98-107); Estimated CRCL calculation 96 ml/min; Estimated Glomerular Filt Rate > 60; Glucose 94 mg/dL (65-110); Lipase 64 U/L (23-300); Partial Thromboplastin Time 33.2 Seconds (22.3-36.8); Potassium 4.5 mmol/L (3.4-5.0); Sodium 130 mmol/L (137-145); Total Protein 8.8 g/dL (6.3-8.2)
[2025-11-15 13:16] LABS: NT Pro B Type Natriuretic Pept 24200 pg/mL (19.9-100); Troponin I 0.048 ng/mL (0.000-0.034)
[2025-11-15 13:31] LABS: Anisocytosis 1+; Hypochromasia 2+; Schistocytes None Seen
[2025-11-15 13:49] LABS: Negative Monotest Control Negative (Negative); Positive Monotest Control Positive (Positive)
[2025-11-15 14:13] LABS: Add Urine Microscopic? YES; Appearance Urine Clear (Clear); Glucose Urine UA Negative (Negative); Leukocyte Esterase Ur Negative LEU/UL (Negative); Need Manual Microscopic Reviewed; Nitrate Urine Negative (Negative); Specific Grav Ur 1.023 (1.001-1.035)
--- OUTSIDE RECORDS SUMMARY | 2025-11-15 14:16 | XMS_ITS | Clinical Summary ---
Author Organization [facility] Address [address] [place] [id number] Care Team Providers Care Automatic Coin Machine Mechanic Name Role Phone Unavailable Primary Care Provider Unavailabl e Social History Tobacco Use Types Packs/Day Years Used Date Smoking Tobacco: Never Assessed Sex and Gender Information Value Date Recorded Sex Assigned at Not on file Legal Sex Male 5:05 PM CDT Gender Identity Not on file Sexual Orientation Not on file Plan of Treatment Health Maintenance Due Date Last Done Comments Annual Physical 2002 HPV Vaccines (1 - Male 3-dos e series) 2014 Hepatitis C 2017 DTaP, Tdap and Td Vaccines ( 1 - Tdap) 2018 Hepatitis B Vaccines (1 of 3 - 19+ 3-dose series) 2018 COVID-19 Vaccine ( - 2024-2 6 season) 2025 Influenza Adult (#1) 2025 Hepatitis A Vaccines Aged Out No long er eligible based on patient's age to complete this topic Meningococcal B Vaccine Aged Out No l onger eligible based on patient's age to complete this topic Meningococcal Vaccine Aged Out No ely jamil eligible based on patient's age to complete this topic Pneumococcal Vaccine: Pediat rics (0 to 5 Years) and At-Risk Patients (6 to 49 Years) Aged Out No longer eligible b ased on patient's age to complete this topic RSV Immunizations Under 20 Months Aged Out No longer eligible based on patient's age to complete this topic
[2025-11-15] MEDS: FUROSEMIDE INJ 40 MG/4 ML VIAL IV PUSH (14:22)
[2025-11-15 14:30] LABS: Influenza A QL RT-PCR Negative (Negative); Influenza B QL RT-PCR Negative (Negative); RSV RNA, RT-PCR Negative (Negative); SARS-CoV-2 RNA PCR Negative (Negative)
[2025-11-15 14:43] LABS: Hepatitis B Surface Antigen Negative (Negative)
[2025-11-15 14:48] LABS: HAV RESULT Negative (Negative); Hepatitis B Core IgM Result Negative (Negative)
--- OUTSIDE RECORDS SUMMARY | 2025-11-15 15:15 | XMS_ITS | Clinical Summary ---
Author Organization [facility] Address [address] [place] [id number] Care Team Providers Care Camera Engineer Name Role Phone Unavailable Primary Care Provider [...]
--- NOTE | 2025-11-15 15:31 | ECG_ITS ---
Test Date: 2025-11-15 15:36:37 Measurements Intervals [place] Rate: 104 P: 24 DC: 151 QRS: 31 QRSD: 101 T: 121 QT: 358 QTc: 472 Interpretive Statements SINUS TACHYCARDIA WITH FREQUENT VENTRICULAR PREMATURE COMPLEXES ST-T WAVE ABNORMALITY IN LAT/HIGH LAT LEADS- CONSIDER ISCHEMIA BASELINE ARTIFACT- I, II, AVR ABNORMAL ECG Compared to ECG 11/15/2025 12:24:25 FREQUENT VENTRICULAR PREMATURE COMPLEXES NOW PRESENT Electronically Signed On 11-15-2025 15:53:05 INSTRUCTIONAL TECHNOLOGY COACH by Ralf Jackman D.O.
--- NOTE | 2025-11-15 15:42 | P.HP_ITS ---
H&P: HPI History of Present Illness Date/Time: 11/15/25 15:42 Chief Complaint: swelling, SOB Narrative: 25 year old male with no past medical history presents to the ED on 11/15/25 with complaints of bilateral lower extremity swelling and dyspnea. He initially presented to [facility] but was directed to the ED for further care. Patient patient additionally reports abdominal distention and some right upper quadrant pain that has been ongoing for and unknown amount of time. His lower extremity and abdominal swelling has increased over the past couple of weeks. He now has some dyspnea on exertion. Petechiae noted throughout bilateral lower extremities. Patient states it has been there for a while. Denies fever, chest pain. Patient is adopted and unsure of his family medical history. Initial vital signs 138/34, 102 HR, respirations 18, afebrile and 99% on room air. CBC without leukocytosis. Microcytic anemia with hemoglobin of 7.6. CMP with no concerning findings. EKG with nonspecific ST changes. [place]roponin [place] 0.[place] [address]. CTA chest PE with abdomen pelvis without PE. Shows CHF with fluid overload. Venous Doppler without evidence for DVT. [facility] Social History Social History (Updated 08/08/25 @ 10:40 by Annetta Paz, SLEEP MEDICINE PHYSICIAN) Smoking packs per day: 1 Smoking cigarettes per day: 20.0 Years smoked: 9 Smoking pack-years: 9.00 Smoking status: Current every day smoker Tobacco type: cigarettes Alcohol intake: former Drinks per week: 1 Substance use: current Substance use type: marijuana Other substance usage details: smokes Last use: 11/15/25 Lack of Transportation: No Lack of Food: Never True Current Housing: I Have Housing Concerned About Future Housing: No Difficulty Paying Gas/Electric Bills: No Difficulty Paying for Meds: No Currently Unemployed: YES Education: High School Diploma/GED Difficulty w/ Childcare or Family Care: No Spiritual care concerns: No Meds Home Medications and Allergies Home Medications ?Medication ?Instructions ?Recorded ?Confirmed ?Type No Home Medications 11/15/25 11/15/25 H istory Allergies Allergy/AdvReac Type Severity Reaction Status Date / Time No Known Drug Allergies Allergy none Verified 11/15/25 16:38 Vital Signs Vital Signs - 24 hr 11/15/25 12:11 11/15/25 12:17 11/15/25 12:55 Temperature 98.2 F 98.6 F Pulse Rate 102 H 107 H 103 H Respiratory Rate 18 14 18 Blood Pressure 138/34 L 122/40 L Pulse Oximetry 99 100 99 11/15/25 13:08 11/15/25 13:45 11/15/25 14:15 Temperature Pulse Rate 107 H 104 H 104 H Respiratory Rate 18 20 Blood Pressure 128/47 L Pulse Oximetry 100 99 99 11/15/25 14:16 11/15/25 14:25 11/15/25 14:30 Temperature Pulse Rate 103 H 97 109 H Respiratory Rate 31 H 15 24 H Blood Pressure 123/44 L 137/53 L Pulse Oximetry 99 100 11/15/25 15:05 Temperature Pulse Rate 103 H Respiratory Rate 31 H Blood Pressure 125/44 L Pulse Oximetry 100 Exam Narrative: GENERAL: appears ill HEAD: Normocephalic, atraumatic. EYES: PERRLA. Conjunctivae clear. NOSE: Normal no drainage. THROAT: Pharynx clear, no exudate. NECK: Trachea midline. No adenopathy, no masses. RESPIRATORY: Airway patent, respirations nonlabored. rales noted. CARDIOVASCULAR: tachycardia with regular rhythm GASTROINTESTINAL: Abdomen is firm on palpation. No organomegaly. Bowel sounds normal in all quadrants. GENITOURINARY: Defer MUSCULOSKELETAL: Moves all extremities. +2 pitting edema bilateral lower extremities. Petechiae throughout both legs SKIN: Warm, dry, normal color. NEURO: A&O X4. Speech clear PSYCHIATRIC: withdrawn Results Labs Labs: Short CBC 11/15/25 Range/Units 12:41 WBC 4.9 (4.5-10.0) K/mm3 Hgb 7.6 L (14.0-18.0) g/dL Hct 25.5 L (42.0-52.0) % Plt Count 174 (150-375) k/mm3 BMP 11/15/25 12:41 Sodium 130 L Potassium 4.5 Chloride 104 Carbon Dioxide 22 BUN 14 Creatinine 0.96 Glucose 94 Calcium 7.6 L Cardiac Enzymes 11/15/25 Range/Units 12:41 Troponin I 0.048 H* (0.000-0.034) ng/mL Liver Function 11/15/25 Range/Units 12:41 Total Bilirubin 1.2 (0.2-1.3) mg/dL Direct Bilirubin 0.0 (0-0.3) mg/dL AST 21 (17-59) U/L ALT 13 (6-50) U/L Alkaline Phosphatase 118 (38-126) U/L Albumin 3.2 L (3.5-5.1) g/dL Urine 12/16/25 Range/Units 13:47 Urine Color Dark yellow (Yellow) Urine Appearance Clear (Clear) Urine pH 5.5 (5.0-9.0) Ur Specific [place] 1.023 (1.001-1.035) Urine Protein 3+ H (Negative) mg/dL Urine Glucose (UA) Negative (Negative) mg/dL Quality VTE Prophylaxis VTE prophylaxis: pharmacologic ordered Assessment and Plan Assessment and plan (1) New onset of congestive heart failure: Code(s): I50.9 - Heart failure, unspecified Status: Acute Assessment and Plan: Imaging reveals fluid overload. BNP 24,200 - echo ordered - cardiology consult - 40 mg IVP Lasix b.i.d. - monitor I&Os - trend renal function Prior Studies I have reviewed the following patient records and this information was taken into consideration when formulating the assessment and plan.: previous labs, previous ER visits, previous hospitalizations and previous clinic visits Time Spent with Patient Time with patient: 45 - 74 minutes Hospitalist MIPS Advance Care Plan I have confirmed that the patient's Advanced Care Plan is present, code status is documented, or surrogate decision maker is listed in patient medical record.: Yes Medication Reconciliation I have utilized all available resources to obtain, update and review the patients current medications (includes all prescriptions, OTC, herbals, cannabis, and nutritional supplements).: Yes
[2025-11-15 15:46] LABS: Thyroid Stimulating Hormone Reflex 3.650 uIU/mL (0.465-4.68)
--- NOTE | 2025-11-15 15:49 | WPCEDHO ---
ED Hand Off Checklist All vitals saved:Y IV Site documented:Y All med administrations documented:Y Triage Note Triage Note pt from local , pt sent in to 11/15/25 12:51 evaluated for extremity, abd swelling. pt also noted to have Petechiae by staff. pt reports etoh history, stopping 4 weeks ago. pt himself reports pain and SOB. AGREE; STATED THAT HE ONLY DRANK ONE DAY A WEEK BUT IT WAS HARD LIQUOR AND IT WOULD BE A FIFTH BUT STATED THAT HE HAS NOT DRANK LIKE THAT IN OVER A YEAR. Allergies No Known Drug Allergies Allergy (Verified 11/15/25 12:18) none Administered/Completed Medications Discontinued Medications Furosemide (Furosemide Inj 40 Mg/4 Ml Vial) 40 mg IV PUSH ONCE STA Stop: 11/15/25 14:11 Last Admin: 11/15/25 14:22 Dose: 40 mg Documented By: CMMaurice Interventions/Assessments IV / Saline Lock, Insert Start: 11/15/25 12:19 Freq: STAT Status: Active Protocol: Document 11/15/25 12:44 CPN (Rec: 11/15/25 12:45 CPN [id number]) IV Assessment Peripheral Access Left Hand IV Catheter Access Initiated IV Insertion Date 11/15/25 IV Insertion Time 12:45 Catheter Gauge 20 IV Insertion 2 Attempts IV Site Assessment WNL IV Care and WNL Maintenance Last Vital Signs Temperature 98.6 F 11/15/25 12:17 Pulse Rate 103 H 11/15/25 15:05 Respiratory Rate 31 H 11/15/25 15:05 Pulse Oximetry 100 11/15/25 15:05 Blood Pressure 125/44 L 11/15/25 15:05 Blood Pressure Mean 66 11/15/25 15:05 Blood Pressure Position Sitting 11/15/25 12:17 Weight 79 kg 11/15/25 12:51 Last Result - Abnormals Only RBC 3.37 M/mm3 (4.6-6.20) L 11/15/25 12:41 Hgb 7.6 g/dL (14.0-18.0) L 11/15/25 12:41 Hct 25.5 % (42.0-52.0) L 11/15/25 12:41 MCV 75.7 fl (80-100) L 11/15/25 12:41 MCH 22.6 pg (26-34) L 11/15/25 12:41 MCHC 29.8 g/dl (32-36) L 11/15/25 12:41 RDW 18.9 % (11.5-14.5) H 11/15/25 12:41 Immature Gran % (Auto) 1.2 % (0-0.5) H 11/15/25 12:41 Abs Immat Gran (auto) 0.06 K/mm3 (0.00-0.031) H 11/15/25 12:41 PT 18.4 Seconds (11.1-14.7) H 11/15/25 12:41 Sodium 130 mmol/L (137-145) L 11/15/25 12:41 Calcium 7.6 mg/dL (8.4-10.2) L 11/15/25 12:41 Troponin I 0.048 ng/mL (0.000-0.034) H* 11/15/25 12:41 NT-Pro-B Natriuret Pep 20090 pg/mL (19.9-100) H 11/15/25 12:41 Total Protein 8.8 g/dL (6.3-8.2) H 11/15/25 12:41 Albumin 3.2 g/dL (3.5-5.1) L 11/15/25 12:41 Urine Protein 3+ mg/dL (Negative) H 11/15/25 13:47 Urine Ketones Trace mg/dL (Negative) H 11/15/25 13:47 Ur Blood (Man) 3+ (Negative) H 11/15/25 13:47 Urine Bilirubin 1+ (Negative) H 11/15/25 13:47 Urine RBC 21-50 /hpf (0-2) H 11/15/25 13:47 Urine WBC 6-10 /hpf (0-3) H 11/15/25 13:47 Most Recent Suicide Severity Rating Suicide Severity Rating NO RISK INDICATED 11/15/25 12:51
[2025-11-15 16:07] LABS: Troponin I 0.046 ng/mL (0.000-0.034)
--- NOTE | 2025-11-15 16:37 | ADMGEN ---
This patient, Feng Nieto, was admitted to [facility]. Patient/family oriented to hospital policies and general routines including ID bracelet, bed and alarms, visiting hours, pain management, procedures, bathroom and other care routines, personal items, smoking policy, room service/diet, and visiting hours. Information on how to activate the Rapid Response Team has been discussed. Patient/Family are encouraged to report perceived risks to care and to ask questions if they do not understand what they are told or what they should do.
[2025-11-15 19:42] LABS: Troponin I 0.043 ng/mL (0.000-0.034)
[2025-11-15] MEDS: ONDANSETRON INJ 4 MG/2 ML VIAL IV PUSH (23:55)
[2025-11-16] VITALS (16 sets, daily range): BP systolic 110–146; BP diastolic 39–63; PULSE 97–108; RESP 16–20; TEMP 36.4–37.7; O2SAT 96–100
--- NOTE | 2025-11-16 | ECHO_ITS ---
Patient Info Name: Feng Nieto Age: 25 years : 2000 Gender: Male Ht: 67 in Wt: 171 lbs BSA: 1.93 m2 HR: 105 bpm BP: 146 / 62 mmHg Technical Quality: Good Exam Date: 11/16/2025 9:06 AM Patient Status: I Admit Date: 11/16/2025 Exam Type: CA echo doppler color flow Complete two-dimensional, color flow and Doppler transthoracic echocardiogram is performed. Staff Referring Physician: Betina Guidry [facility] Infusion Rn: Breezy Rick III Attending Provider: Joseph Aviles Summary 1. Complete two-dimensional, color flow and Doppler transthoracic echocardiogram is performed. 2. Mild LV enlargement, moderate LVH, normal LV systolic function, ejection fraction 65-70%. Indeterminate diastolic function. Normal RV size and systolic function. Moderate to severe left atrial enlargement, mild right enlargement. Mitral valve is mildly thickened, mild MR. There is mobile, filamentous echogenic mass, about 2.8 cm on the ventricular side of the aortic valve suggestive of vegetation. Moderate aortic regurgitation is noted. Mild tricuspid regurgitation, unable to assess RVSP due to inadequate TR jet. Medium to large circumferential pericardial effusion, no echo evidence of tamponade. Recommend transesophageal echocardiogram and referral to tertiary care center for CT surgery/heart team evaluation. Left Ventricle Left ventricular chamber dimension is mildly enlarged. There is moderately increased left ventricular wall thickness. Right Ventricle Right ventricular chamber dimension is normal. Right ventricular systolic function is normal. Left Atria Left atrial chamber dimension is severely enlarged. Right Atria Right atrial chamber dimension is mildly enlarged. Aortic Valve There is moderate aortic valve regurgitation. Large aortic valve vegetation visualized. Pulmonic Valve The pulmonic valve is normal. Mitral Valve The mitral valve has thickened leaflets. There is mild mitral valve regurgitation. Tricuspid Valve The tricuspid valve leaflets are normal. There is mild tricuspid valve regurgitation. Pericardium/Pleural There is moderate circumferential pericardial effusion. Inferior Vena Cava Normal inferior vena cava with >50% collapse upon inspiration consistent with normal right atrial pressure, 5 mmHg. Aorta The aortic root size at the sinus of Valsalva is not well visualized. Left Ventricular Outflow Tract Name Value Normal LVOT 2D LVOT Diameter 2.7 cm LVOT Doppler LVOT Peak Velocity 143 cm/s LVOT Peak Gradient 8 mmHg LVOT Mean Gradient 4 mmHg LVOT VTI 26 cm LVOT VTI/AV VTI Ratio 0.9 LVOT Stroke Volume 152 ml LVOT CO 16.0 l/min LVOT CI 8.3 l/min/m2 Pulmonic Valve Name Value Normal PV Doppler PV Peak Velocity 131 cm/s PV Peak Gradient 7 mmHg PV Mean Gradient 4 mmHg Mitral Valve Name Value Normal MV Doppler MV Peak Gradient 38 mmHg MV Mean Gradient 15 mmHg MV Area (Cont Eq VTI) 2.9 cm2 MV Diastolic Function MV E Peak Velocity 192 cm/s MV Decel Time (PW) 91 ms MV Annular TDI MV E/e' (Septal) 25.2 MV E/e' (Lateral) 61.7 MV E/e' (Average) 43.5 Tricuspid Valve Name Value Normal Estimated PAP/RSVP RA Pressure 5 mmHg <=5 TV Annular TDI TV Lateral Grace s' Velocity 20.5 cm/s >=9.5 Aortic Valve Name Value Normal AV Doppler AV Peak Velocity 174 cm/s AV Peak Gradient 12 mmHg AV Mean Gradient 6 mmHg AV VTI 30 cm AV Area (Cont Eq VTI) 5.1 cm2 >=3.0 AV Area (Cont Eq Derek) 4.8 cm2 AV DI (Derek) 0.82 AV Regurgitation 2D LVOT Area 5.8 cm2 Ventricles Name Value Normal LV Dimensions 2D/MM IVS Diastolic Thickness (2D) 1.4 cm 0.6-1.0 LVID Diastole (2D) 6.3 cm 4.2-5.8 LVIW Diastolic Thickness (2D) 1.6 cm 0.6-1.0 LVID Systole (2D) 4.6 cm 2.5-4.0 LVOT Diameter 2.7 cm LV Mass (2D Cubed) 457.14 g 88.00-224.00 LV Mass Index (2D Cubed) 237 g/m2 49-115 Relative Wall Thickness (2D) 0.49 <=0.42 LV Fractional Shortening/Ejection Fraction 2D/MM LV Fractional Shortening (2D) 28 % 25-43 LV EF (2D Teichholz) 53 % LV Diastolic Volume (4C MOD) 210 ml LV EF (4C MOD) 65 % LV Diastolic Volume (2C MOD) 197 ml LV EF (2C MOD) 72 % LV Diastolic Volume (BP MOD) 210 ml 62-150 LV Diastolic Volume Index (BP MOD) 109 ml/m2 34-74 LV Systolic Volume (BP MOD) 66 ml 21-61 LV Systolic Volume Index (BP MOD) 34 ml/m2 11-31 LV EF (BP MOD) 68 % 52-72 LV Diastolic Length (4C) 8.5 cm LV Systolic Length (4C) 6.8 cm LV Stroke Volume (4C MOD) 136 ml Atria Name Value Normal LA Dimensions LA Volume (4C A-L) 155 ml LA Volume (BP A-L) 154 ml RA Dimensions RA Systolic Major [place] Length (4C) 6.1 cm 2.1-2.7 RA Area (4C) 25.4 cm2 <=18.0 Report Signatures
[2025-11-16] MEDS: NICOTINE (*PBKC) 14 MG PATCH 1 PATCH TRANSDERM (04:39)
[2025-11-16 04:43] LABS: Hematocrit 25.4 % (42.0-52.0); Hemoglobin 7.6 g/dL (14.0-18.0); Immature Granulocyte Percent A 0.7 % (0-0.5); Lymphocytes Absolute Auto 1.01 K/mm3 (0.9-3.2); Mean Corpuscular HGB Conc 29.9 g/dl (32-36); Mean Corpuscular Hemoglobin 22.6 pg (26-34); Mean Corpuscular Volume 75.6 fl (80-100); Nucleated Red Blood Cells Absolute Auto 0.000 K/mm3 (0.0-0.012); Nucleated Red Blood Cells Perc 0.0 % (0.0-0.2); Platelet Count Result 168 k/mm3 (150-375); Red Blood Count 3.36 M/mm3 (4.6-6.20); White Blood Count 4.5 K/mm3 (4.5-10.0)
[2025-11-16 05:05] LABS: Burr Cells 1+; Ovalocytes 1+; Schistocytes None Seen
[2025-11-16 05:06] LABS: Anion Gap 5 mmol/L (4-12); Blood Urea Nitrogen 17 mg/dL (9-20); Calcium 7.4 mg/dL (8.4-10.2); Carbon Dioxide 20 mmol/L (22-30); Chloride 101 mmol/L (98-107); Estimated CRCL calculation 87 ml/min; Estimated Glomerular Filt Rate > 60; Glucose 97 mg/dL (65-110); Hypochromasia 1+; Potassium 5.2 mmol/L (3.4-5.0); Sodium 126 mmol/L (137-145)
[2025-11-16] MEDS: FUROSEMIDE INJ 40 MG/4 ML VIAL IV PUSH ×2 (08:28→16:38)
--- NOTE | 2025-11-16 09:05 | P.PNIM_ITS ---
Assessment and Plan Assessment and Plan (1) New onset of congestive heart failure: Code(s): I50.9 - Heart failure, unspecified Status: Acute Assessment and Plan: Imaging reveals fluid overload. 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 - monitor I&Os - trend renal function -order blood culture, lactic acid, HIV, syphilis -ordered PT, PTT and INR -hepatitis panel negative -will start on vancomycin and ceftriaxone -ID consulted -transfer to tertiary care center (2) Infective endocarditis: Code(s): I33.0 - Acute and subacute infective endocarditis Status: Acute Assessment and Plan: Same as above (3) Purpura: Code(s): D69.2 - Other nonthrombocytopenic purpura Status: Acute Assessment and Plan: -no evidence of bleeding -hemoglobin 8.1, platelet 171 -if necessary will give steroid -no evidence of TTP and DIC -order blood culture, lactic acid, HIV, syphilis -ordered PT, PTT and INR -hepatitis panel negative Subjective Date/time seen: 11/16/25 09:05 Interval history: Patient has evidence of fluid overload, purpura on bilateral lower extremity and anemia. UDS positive for cannabis. Hepatitis panel negative. Elevated troponin and BNP. Reviewed anemia panel. Consulted GI. Echocardiogram reveals vegetation. Consulted ID. Hepatitis panel negative. Ordered blood culture, lactic acid, HIV, syphilis, PT, PTT, INR. Patient will be transferred to [facility] for further management. Patient denies any IV drug abuse. Exam Narrative: GENERAL: appears ill HEAD: Normocephalic, atraumatic. EYES: PERRLA. Conjunctivae clear. NOSE: Normal no drainage. THROAT: Pharynx clear, no exudate. NECK: Trachea midline. No adenopathy, no masses. RESPIRATORY: Airway patent, respirations nonlabored. rales noted. CARDIOVASCULAR: tachycardia with regular rhythm GASTROINTESTINAL: Abdomen is firm on palpation. No organomegaly. Bowel sounds normal in all quadrants. GENITOURINARY: Defer MUSCULOSKELETAL: Moves all extremities. +2 pitting edema bilateral lower extremities. Petechiae throughout both legs SKIN: Warm, dry, normal color. NEURO: A&O X4. Speech clear PSYCHIATRIC: withdrawn Objective Data Vital Signs Vital Signs: Vital Signs - 24 hr 11/15/25 12:11 11/15/25 12:17 11/15/25 12:55 Temperature 98.2 F 98.6 F Pulse Rate 102 H 107 H 103 H Respiratory Rate 18 14 18 Blood Pressure 138/34 L 122/40 L Pulse Oximetry 99 100 99 Oxygen Delivery 11/15/25 13:08 11/15/25 13:45 11/15/25 14:15 Temperature Pulse Rate 107 H 104 H 104 H Respiratory Rate 18 20 Blood Pressure 128/47 L Pulse Oximetry 100 99 99 Oxygen Delivery 11/15/25 14:16 11/15/25 14:25 11/15/25 14:30 Temperature Pulse Rate 103 H 97 109 H Respiratory Rate 31 H 15 24 H Blood Pressure 123/44 L 137/53 L Pulse Oximetry 99 100 Oxygen Delivery 11/15/25 15:05 11/15/25 16:30 11/15/25 16:34 Temperature 98.0 F Pulse Rate 103 H 132 H Respiratory Rate 31 H 20 Blood Pressure 125/44 L 123/40 L Pulse Oximetry 100 100 Oxygen Delivery Room Air 11/15/25 18:00 11/15/25 20:00 11/15/25 20:00 Temperature Pulse Rate 98 99 Respiratory Rate Blood Pressure Pulse Oximetry Oxygen Delivery Room Air 11/15/25 21:01 11/15/25 22:00 11/16/25 00:00 Temperature 98.5 F Pulse Rate 105 H 103 H Respiratory Rate 16 Blood Pressure 127/48 L Pulse Oximetry 96 Oxygen Delivery Room Air 11/16/25 00:00 11/16/25 00:29 11/16/25 02:00 Temperature 100 F H Pulse Rate 108 H 108 H 106 H Respiratory Rate 20 Blood Pressure 146/48 H Pulse Oximetry 96 Oxygen Delivery 11/16/25 04:00 11/16/25 04:00 11/16/25 06:00 Temperature Pulse Rate 99 101 H Respiratory Rate Blood Pressure Pulse Oximetry Oxygen Delivery Room Air 11/16/25 06:50 11/16/25 07:49 Temperature 99.0 F 98.5 F Pulse Rate 106 H 108 H Respiratory Rate 18 20 Blood Pressure 146/62 H 128/46 L Pulse Oximetry 98 100 Oxygen Delivery Intake/Output Intake/Output: Intake & Output 11/13/25 11/14/25 11/15/25 11/16/25 23:59 23:59 23:59 23:59 Intake Total 480 2200 Output Total 300 627 Balance 180 1573 Meds/Results Medications: Active Medications Generic Name Dose Route Start Last Admin Trade Name Freq PRN Reason Stop Dose Admin Furosemide 40 mg 11/16/25 09:00 11/16/25 08:28 Furosemide Inj 40 Mg/4 Ml Vial IV PUSH 40 mg BID DEMARIO Administration Nicotine 1 patch 11/16/25 04:30 11/16/25 04:39 Nicotine (*Pbkc) 14 Mg Patch TRANSDERM 1 patch DAILY DEMARIO Administration Ondansetron HCl 4 mg 11/15/25 23:18 11/15/25 23:55 Ondansetron Inj 4 Mg/2 Ml Vial IV PUSH 4 mg Q6H PRN Administration Nausea And Vomiting Perflutren Lipid Microsphere 0 ml 11/15/25 15:37 Perflutren Lipid Microspheres 1.5 Ml Vial Diluted To 10 Ml Total Volume IV PUSH 11/18/25 15:37 ONCE PRN adequate visualization Protocol Radiology Results: ITS Impressions Chest X-Ray 11/15/25 13:11 IMPRESSION: 1. Pericardial effusion and/or cardiomegaly. 2. Interstitial pulmonary edema. Chest/Abdomen/Pelvis CTA 11/15/25 13:44 IMPRESSION: 1. Negative for pulmonary embolism. CHF with probable fluid overload. 2. No acute intra-abdominal process. 3. Incidental findings above Venous Doppler Study 11/15/25 13:49 Impression: Negative for DVT. Labs Labs: Laboratory Results - last 24 hr 11/15/25 11/15/25 11/15/25 12:41 12:45 13:47 WBC 4.9 RBC 3.37 L Hgb 7.6 L Hct 25.5 L MCV 75.7 L MCH 22.6 L MCHC 29.8 L RDW 18.9 H Plt Count 174 MPV 9.3 Immature Gran % (Auto) 1.2 H Neut % (Auto) 68.9 Lymph % (Auto) 22.1 Alfalfa % (Auto) 6.8 Eos % (Auto) 0.4 Baso % (Auto) 0.6 Lymph # (Auto) 1.08 Alfalfa # (Auto) 0.3 Eos # (Auto) 0.0 Baso # (Auto) 0.0 Abs Immat Gran (auto) 0.06 H Absolute Neuts (auto) 3.4 Absolute Nucleated RBC 0.000 Band Neutrophils % Not Reportable Nucleated RBC % 0.0 Platelet Estimate Adequate Hypochromasia 2+ Anisocytosis 1+ Ovalocytes Rufus Cells Schistocytes None seen PT 18.4 H INR 1.5 APTT 33.2 Sodium 130 L Potassium 4.5 Chloride 104 Carbon Dioxide 22 Anion Gap 4 BUN 14 Creatinine 0.96 Estim Creat Clear Calc 96 Estimated GFR > 60 Glucose 94 Lactic Acid 0.9 Calcium 7.6 L Total Bilirubin 1.2 Direct Bilirubin 0.0 AST 21 ALT 13 Alkaline Phosphatase 118 Ammonia 18 Troponin I 0.048 H* NT-Pro-B Natriuret Pep 54627 H Total Protein 8.8 H Albumin 3.2 L Lipase 64 TSH (Reflex) 3.650 Urine Color Dark yellow Urine Appearance Clear Urine pH 5.5 Ur Specific [place] 1.023 Urine Protein 3+ H Urine Glucose (UA) Negative Urine Ketones Trace H Ur Blood (Man) 3+ H Urine Nitrate Negative Urine Bilirubin 1+ H Urine Urobilinogen 1.0 Add Ur Microanalysis Reviewed Leukocyte Esterase Rfl Negative Urine RBC 21-50 H Urine WBC 6-10 H Ur Squamous Epith Cells Occasional Urine Bacteria None seen Urine Casts 3-5 Hepatitis A IgM Ab Negative Hep Bs Antigen Negative Hep B Core IgM Ab Negative Hepatitis C Ab Screen Negative Monoscreen Negative Influenza A (RT-PCR) Negative Influenza B (RT-PCR) Negative RSV (RT-PCR) Negative SARS-CoV-2 RNA (RT-PCR) Negative 11/15/25 11/15/25 11/16/25 15:34 19:09 04:31 WBC 4.5 RBC 3.36 L Hgb 7.6 L Hct 25.4 L MCV 75.6 L MCH 22.6 L MCHC 29.9 L RDW 18.9 H Plt Count 168 MPV 9.3 Immature Gran % (Auto) 0.7 H Neut % (Auto) 70.2 Lymph % (Auto) 22.6 Alfalfa % (Auto) 5.1 Eos % (Auto) 0.7 Baso % (Auto) 0.7 Lymph # (Auto) 1.01 Alfalfa # (Auto) 0.2 Eos # (Auto) 0.0 Baso # (Auto) 0.0 Abs Immat Gran (auto) 0.03 Absolute Neuts (auto) 3.1 Absolute Nucleated RBC 0.000 Band Neutrophils % Not Reportable Nucleated RBC % 0.0 Platelet Estimate Adequate Hypochromasia 1+ Anisocytosis Ovalocytes 1+ Evans Cells 1+ Schistocytes None seen PT INR APTT Sodium 126 L Potassium 5.2 H Chloride 101 Carbon Dioxide 20 L Anion Gap 5 BUN 17 Creatinine 1.07 Estim Creat Clear Calc 87 Estimated GFR > 60 Glucose 97 Lactic Acid Calcium 7.4 L Total Bilirubin Direct Bilirubin AST ALT Alkaline Phosphatase Ammonia Troponin I 0.046 H* 0.043 H* NT-Pro-B Natriuret Pep Total Protein Albumin Lipase TSH (Reflex) Urine Color Urine Appearance Urine pH Ur Specific [place] Urine Protein Urine Glucose (UA) Urine Ketones Ur Blood (Man) Urine Nitrate Urine Bilirubin Urine Urobilinogen Add Ur Microanalysis Leukocyte Esterase Rfl Urine RBC Urine WBC Ur Squamous Epith Cells Urine Bacteria Urine Casts Hepatitis A IgM Ab Hep Bs Antigen Hep B Core IgM Ab Hepatitis C Ab Screen Monoscreen Influenza A (RT-PCR) Influenza B (RT-PCR) RSV (RT-PCR) SARS-CoV-2 RNA (RT-PCR) Quality VTE Prophylaxis VTE prophylaxis: pharmacologic ordered Hospitalist MIPS Advance Care Plan I have confirmed that the patient's Advanced Care Plan is present, code status is documented, or surrogate decision maker is listed in patient medical record.: Yes Medication Reconciliation I have utilized all available resources to obtain, update and review the patients current medications (includes all prescriptions, OTC, herbals, cannabis, and nutritional supplements).: Yes
--- NOTE | 2025-11-16 10:22 | P.CONCA_ITS ---
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 -Moderate to large pericardial effusion with no tamponade physiology -NSTEMI- chest pain and elevated troponin -Petechiae of lower extremities- suspect septic emboli -Anemia with Hg of 7 Plan: EMIGDIO to evaluate the aortic valve and AR Initiate transfer for CT surgery evaluation Troponin is elevated but flat- most likely type II MT in the setting of acute AR, acute heart failure, and anemia Lasix 40 mg IV daily Check and replace electrolytes to keep K>4 and Mg>2 Monitor on telemetry Blood cultures x 2 ID consult to evaluate if this is infective endocarditis and for abx recommendations GI consult to evaluate anemia History of Present Illness History of Present Illness Consult date/time: 11/16/25 10:22 Reason For Visit: New CHF Narrative: 25 year old male with no significant PMH presents with CC of chest pain for the past few months, SOB and leg swelling for one week. Patient reports onset of left sided chest pain a few months ago. Pain comes on with no relation to activity, change in position, deep breathing. It lasts from a few minutes to about 1.5hrs at max before resolving spontaneously. He had this chest pain yesterday and when it did not resolve he presented to the ER. He has SOB and leg swelling for one week. This has been getting worse since onset. He noticed petechiae on his legs before his legs started swelling. No fever, chills, dizziness, lightheadedness, palpitations, pre syncope, syncope, headache, nausea, emesis, abdominal pain. He is adopted and does not know his family history. He smokes 1 pack of cigarettes per day. He also smokes Marijuana daily. No other drug use. Troponin and NT pro BNP are elevated. EKG show SR, frequent PVCs, and ST depressions suggestive of ischemia. CT chest was negative for PE but shows enlarged liver, spleen, heart, and pericardial effusion. TTE shows moderate to large pericardial effusion without any tamponade physiology, LVEF 65%, large mobile aortic vegetation on the ventricular aspect measuring 2.8cm in size, moderate AR. Cardiology is consulted for new onset HF. Work up: Troponin: 0.046, 0.043 Potassium 5.2 Sodium 130, 126 Iron low at 40 % saturation low at 14% TIBC normal Creatinine 1 Albumin 3.2 TP 8.8 TSH wnl Folate and B12 wnl NT pro BNP 98143 LE dopplers - negative for DVT EKG: sinus tachycardia with frequent PVCs, ST-T wave chagnes in lateral leads suggestive of ischemia TTE: moderate to large pericardial effusion without any tamponade physiology, LVEF 65%, large mobile aortic vegetation on the ventricular aspect measuring 2.8cm in size, moderate AR. CT chest abdomen and pelvis: IMPRESSION: 1. Negative for pulmonary embolism. CHF with probable fluid overload. 2. No acute intra-abdominal process. 3. Incidental findings above ( Severe cardiomegaly. Large simple appearing pericardial effusion. The liver appears enlarged with a heterogeneous appearance. The liver measures 22 cm. The spleen appears prominent. Spleen measures 17 cm.) Review of Systems 2 Review of Systems: A complete review of systems was performed and pertinent positives are reported in the HPI. [facility] Social History Social History (Updated 08/08/25 @ 10:40 by Annetta Paz, JAVI) Smoking packs per day: 1 Smoking cigarettes per day: 20.0 Years smoked: 9 Smoking pack-years: 9.00 Smoking status: Current every day smoker Tobacco type: cigarettes Alcohol intake: former Drinks per week: 1 Substance use: current Substance use type: marijuana Other substance usage details: smokes Last use: 11/15/25 Lack of Transportation: No Lack of Food: Never True Current Housing: I Have Housing Concerned About Future Housing: No Difficulty Paying Gas/Electric Bills: No Difficulty Paying for Meds: No Currently Unemployed: YES Education: High School Diploma/GED Difficulty w/ Childcare or Family Care: No Spiritual care concerns: No Meds Home Medications and Allergies Home Medications ?Medication ?Instructions ?Recorded ?Confirmed ?Type No Home Medications 11/15/25 11/15/25 H istory Allergies Allergy/AdvReac Type Severity Reaction Status Date / Time No Known Drug Allergies Allergy none Verified 11/15/25 16:38 Vital Signs Vital Signs - 24 hr 11/15/25 12:11 11/15/25 12:17 11/15/25 12:55 Temperature 36.8 C 37.0 C Pulse Rate 102 H 107 H 103 H Respiratory Rate 18 14 18 Blood Pressure 138/34 L 122/40 L Pulse Oximetry 99 100 99 Oxygen Delivery 11/15/25 13:08 11/15/25 13:45 11/15/25 14:15 Temperature Pulse Rate 107 H 104 H 104 H Respiratory Rate 18 20 Blood Pressure 128/47 L Pulse Oximetry 100 99 99 Oxygen Delivery 11/15/25 14:16 11/15/25 14:25 11/15/25 14:30 Temperature Pulse Rate 103 H 97 109 H Respiratory Rate 31 H 15 24 H Blood Pressure 123/44 L 137/53 L Pulse Oximetry 99 100 Oxygen Delivery 11/15/25 15:05 11/15/25 16:30 11/15/25 16:34 Temperature 36.7 C Pulse Rate 103 H 132 H Respiratory Rate 31 H 20 Blood Pressure 125/44 L 123/40 L Pulse Oximetry 100 100 Oxygen Delivery Room Air 11/15/25 18:00 11/15/25 20:00 11/15/25 20:00 Temperature Pulse Rate 98 99 Respiratory Rate Blood Pressure Pulse Oximetry Oxygen Delivery Room Air 11/15/25 21:01 11/15/25 22:00 11/16/25 00:00 Temperature 36.9 C Pulse Rate 105 H 103 H Respiratory Rate 16 Blood Pressure 127/48 L Pulse Oximetry 96 Oxygen Delivery Room Air 11/16/25 00:00 11/16/25 00:29 11/16/25 02:00 Temperature 37.7 C H Pulse Rate 108 H 108 H 106 H Respiratory Rate 20 Blood Pressure 146/48 H Pulse Oximetry 96 Oxygen Delivery 11/16/25 04:00 11/16/25 04:00 11/16/25 06:00 Temperature Pulse Rate 99 101 H Respiratory Rate Blood Pressure Pulse Oximetry Oxygen Delivery Room Air 11/16/25 06:50 11/16/25 07:49 Temperature 37.2 C 36.9 C Pulse Rate 106 H 108 H Respiratory Rate 18 20 Blood Pressure 146/62 H 128/46 L Pulse Oximetry 98 100 Oxygen Delivery Exam 2 Narrative: General: Alert oriented x3, no acute distress Neck: Supple, JVD + Chest: Bibasilar rales+, no rhonchi Cardiac: S1, S2 +, regular rate, regular rhythm, no murmurs or rubs Extremities: Bilateral lower extremity edema 2+, petechiae noted on BL LE Neurologic: Alert and oriented x3, no focal neurological deficits Results Labs and Meds 11/16/25 04:31 11/16/25 04:31 Lab results: Cardiac Enzymes 11/15/25 11/15/25 11/15/25 Range/Units 12:41 15:34 19:09 AST 21 (17-59) U/L Troponin I 0.048 H* 0.046 H* 0.043 H* (0.000-0.034) ng/mL Coagulation 11/15/25 Range/Units 12:41 PT 18.4 H (11.1-14.7) Seconds APTT 33.2 (22.3-36.8) Seconds CBC 11/15/25 11/16/25 Range/Units 12:41 04:31 WBC 4.9 4.5 (4.5-10.0) K/mm3 RBC 3.37 L 3.36 L (4.6-6.20) M/mm3 Hgb 7.6 L 7.6 L (14.0-18.0) g/dL Hct 25.5 L 25.4 L (42.0-52.0) % Plt Count 174 168 (150-375) k/mm3 Lymph # (Auto) 1.08 1.01 (0.9-3.2) K/mm3 [place] # (Auto) 0.3 0.2 (0.1-0.6) K/mm3 Eos # (Auto) 0.0 0.0 (0-0.3) K/mm3 Baso # (Auto) 0.0 0.0 (0.0-0.1) K/mm3 Comprehensive Metabolic Panel 11/15/25 11/16/25 Range/Units 12:41 04:31 Sodium 130 L 126 L (137-145) mmol/L Potassium 4.5 5.2 H (3.4-5.0) mmol/L Chloride 104 101 (98-107) mmol/L Carbon Dioxide 22 20 L (22-30) mmol/L BUN 14 17 (9-20) mg/dL Creatinine 0.96 1.07 (0.7-1.3) mg/dL Glucose 94 97 (65-110) mg/dL Calcium 7.6 L 7.4 L (8.4-10.2) mg/dL Direct Bilirubin 0.0 (0-0.3) mg/dL AST 21 (17-59) U/L ALT 13 (6-50) U/L Alkaline Phosphatase 118 (38-126) U/L Total Protein 8.8 H (6.3-8.2) g/dL Albumin 3.2 L (3.5-5.1) g/dL Intake and Output 11/15/25 11/16/25 11/16/25 23:59 07:59 15:59 Intake Total 480 1650 550 Output Total 300 252 375 Balance 180 1398 175 Intake: Oral 480 1650 550 Output: Urine 300 250 375 Output, Urine/Stool Mix Amount 2 Other: # Unmeasured Voids 10 Number of Bowel Movements Today 1 Patient Weight 11/16/25 23:59 Weight 78.6 kg
--- NOTE | 2025-11-16 13:28 | WPDGICN ---
Assessment and Plan Assessment and plan (1) Microcytic anemia: Code(s): D50.9 - Iron deficiency anemia, unspecified Status: Acute (2) Cardiomegaly: Code(s): I51.7 - Cardiomegaly Status: Acute (3) New onset of congestive heart failure: Code(s): I50.9 - Heart failure, unspecified Status: Acute (4) Pericardial effusion: Code(s): I31.39 - Other pericardial effusion (noninflammatory) Status: Acute Plan 1. Microcytic Anemia: He has a new diagnosis of congestive heart failure with infective endocarditis of the aortic valve and mass 2.8 cm on aortic valve. Hgb 7.6 and microcytic with last iron studies in March 2025 with Iron Deficiency-No recent Ferritin/Iron Panel. He is not having any signs of active GI bleeding at this time. He does have marked splenomegaly measuring 17 cm, he also has night sweats and chills. LFTs are normal along with platelets. Acute hepatitis panel negative. Cardiology have initiated transfer for patient at this time through [facility] to be evaluated by CTS. Heparin drip to be started per cardiology. -From a GI standpoint, we are in no faustin to pursue endoscopic evaluation until his cardiac status is stabilized and further evaluated. -Monitor H&H -Monitor signs of bleeding after starting of heparin. -Further recs per Dr. Yan. 2. CHF/Pericardial Effusion/Infectious Endocarditis: -Blood Cultures Pending -Cardiology following -[facility]. GI Consult Note Consult date/time: 11/16/25 1240 Reason for consult: anemia HPI: This is a pleasant 25 year old male with a past medical surgical history of new diagnosis of congestive heart failure. He presented to the ER room 11/16/2025 with complaints of bilateral pitting lower extremity edema, abdominal distension, and petechiae. GI consulted for evaluation of anemia. Cardiology work up with new diagnosis of CHF, ECHO with infectious endocarditis of aortic valve, NSTEMI. Plans of EMIGDIO, heparin and possible cardiothoracic consult. His father was present during consult. He presented to the hospital for bilateral pitting lower extremity edema, abdominal distension, and petechiae, which have been present for approximately 3 months. The swelling in his legs worsened over the past week. He has experienced an unintentional weight loss of 25 pounds, from 200 lbs to 175 lbs, though the timeline is unclear. He also reports chills and night sweats. He denies any history of IV drug use. He drinks alcohol about once a week, consuming approximately seven beers in one sitting. He reports a history of heavier drinking from age 20 to 21, where he would drink a six-pack of beer and a fifth of liquor weekly. He is adopted and is unaware of his family medical history. He takes ibuprofen for headaches and Tylenol for pain but reports infrequent use of both. He denies taking any other enim-wdd-bjcuhes medications or herbal supplements. He denies any black or tarry stools, bright red blood per rectum, vomiting blood, or coffee-ground emesis. He is having some diarrhea at present, which he attributes to hospital medications, but normally has two solid bowel movements per day. He denies any chronic acid reflux, heartburn, pain with eating, abdominal pain, dysphagia, or odynophagia. He is tolerating his diet without nausea or vomiting. He states his swelling in his legs have decreased. He denies any recent sick/ill contacts. He does not work and has an 11 and 9 year sons at home that he cares for. ENDOSCOPY HISTORY: EGD: None. COLONOSCOPY: None. LABS AND STOOL STUDIES: 11/15/2025: Na 126, K 5.2, BUN 17, creatinine 1.07, WBC 4.9, HGB 7.6, HCT 25.5, MCV 75.7, PLATELETS 174, total bilirubin 1.2, AST 21, ALT 13, Alkaline Phosphate 118, direct bilirubin 0.0, troponin elevated, BNP 25984, albumin 3.2, acute hepatitis panel negative. 04/14/2025: Hgb 9.8, iron 40, TIBC 282, iron sat 14%. No recent stool studies available. IMAGING: CTA chest/abdomen/pelvis on 11/15/2025 Impression: 1. Negative for pulmonary embolism. CHF with probable fluid overload. 2. No acute intra-abdominal process. 3. Incidental findings include: Severe cardiomegaly; large, simple-appearing pericardial effusion; enlarged liver measuring 22 cm with heterogeneous appearance; prominent spleen measuring 17 cm; moderate pulmonary venous congestion; hyperemia of the gallbladder mucosa with small amount of pericholecystic fluid; ill-defined stranding within the mesentery; small amount of free fluid; and mild soft tissue anasarca. Review of Systems Review of Systems: All systems reviewed & are unremarkable except as noted in HPI and below Constitutional: Constitutional: Reports chills, Reports fatigue, Reports lethargy and Reports night sweats PMFSH Social History Social History (Updated 08/08/25 @ 10:40 by Annetta Paz, MEASUREMENT AND VERIFICATION ENGINEER) Smoking packs per day: 1 Smoking cigarettes per day: 20.0 Years smoked: 9 Smoking pack-years: 9.00 Smoking status: Current every day smoker Tobacco type: cigarettes Alcohol intake: former Drinks per week: 1 Substance use: current Substance use type: marijuana Other substance usage details: smokes Last use: 11/15/25 Lack of Transportation: No Lack of Food: Never True Current Housing: I Have Housing Concerned About Future Housing: No Difficulty Paying Gas/Electric Bills: No Difficulty Paying for Meds: No Currently Unemployed: YES Education: High School Diploma/GED Difficulty w/ Childcare or Family Care: No Spiritual care concerns: No Meds Home Medications and Allergies Home Medications ?Medication ?Instructions ?Recorded ?Confirmed ?Type No Home Medications 11/15/25 11/15/25 History Allergies Allergy/AdvReac Type Severity Reaction Status Date / Time No Known Drug Allergies Allergy none Verified 11/15/25 16:38 Vital Signs Vital Signs - 24 hr 11/15/25 13:45 11/15/25 14:15 11/15/25 14:16 Temperature Pulse Rate 104 H 104 H 103 H Respiratory Rate 20 31 H Blood Pressure 128/47 L Pulse Oximetry 99 99 99 Oxygen Delivery 11/15/25 14:25 11/15/25 14:30 11/15/25 15:05 Temperature Pulse Rate 97 109 H 103 H Respiratory Rate 15 24 H 31 H Blood Pressure 123/44 L 137/53 L 125/44 L Pulse Oximetry 100 100 Oxygen Delivery 11/15/25 16:30 11/15/25 16:34 11/15/25 18:00 Temperature 98.0 F Pulse Rate 132 H 98 Respiratory Rate 20 Blood Pressure 123/40 L Pulse Oximetry 100 Oxygen Delivery Room Air 11/15/25 20:00 12/16/25 20:00 11/15/25 21:01 Temperature 98.5 F Pulse Rate 99 105 H Respiratory Rate 16 Blood Pressure 127/48 L Pulse Oximetry 96 Oxygen Delivery Room Air 11/15/25 22:00 11/16/25 00:00 11/16/25 00:00 Temperature Pulse Rate 103 H 108 H Respiratory Rate Blood Pressure Pulse Oximetry Oxygen Delivery Room Air 11/16/25 00:29 11/16/25 02:00 11/16/25 04:00 Temperature 100 F H Pulse Rate 108 H 106 H Respiratory Rate 20 Blood Pressure 146/48 H Pulse Oximetry 96 Oxygen Delivery Room Air 11/16/25 04:00 11/16/25 06:00 11/16/25 06:50 Temperature 99.0 F Pulse Rate 99 101 H 106 H Respiratory Rate 18 Blood Pressure 146/62 H Pulse Oximetry 98 Oxygen Delivery 11/16/25 07:49 11/16/25 08:00 11/16/25 10:00 Temperature 98.5 F Pulse Rate 108 H 106 H 103 H Respiratory Rate 20 Blood Pressure 128/46 L Pulse Oximetry 100 Oxygen Delivery 11/16/25 11:33 Temperature 97.5 F L Pulse Rate 97 Respiratory Rate 20 Blood Pressure 110/63 Pulse Oximetry 100 Oxygen Delivery Exam Const: General: comfortable Other: anxious HENMT: Mouth: Yes dry mucous membranes Eyes: Sclera: sclerae normal GI: GI Palp: Yes Soft to palpation, No Firmness to palpation present (GI), Yes Tenderness to palpation present (GI) (LUQ with splenomegagly), Yes Guarding due to palpation present (GI) and No Hernia present Auscultation: normal bowel sounds Skin: Other: Pallor noted and petechia noted to bilateral lower legs Neuro: Speech: normal speech Extrem: General: no edema Psych: Mental Status: mental status grossly normal Affect: Anxious affect present Results Labs 11/16/25 04:31 11/16/25 04:31 Labs: Short CBC 11/16/25 Range/Units 04:31 WBC 4.5 (4.5-10.0) K/mm3 Hgb 7.6 L (14.0-18.0) g/dL Hct 25.4 L (42.0-52.0) % Plt Count 168 (150-375) k/mm3 BMP 11/16/25 04:31 Sodium 126 L Potassium 5.2 H Chloride 101 Carbon Dioxide 20 L BUN 17 Creatinine 1.07 Glucose 97 Calcium 7.4 L Cardiac Enzymes 11/15/25 11/15/25 Range/Units 15:34 19:09 Troponin I 0.046 H* 0.043 H* (0.000-0.034) ng/mL Urine 11/15/25 Range/Units 13:47 Urine Color Dark yellow (Yellow) Urine Appearance Clear (Clear) Urine pH 5.5 (5.0-9.0) Ur Specific [place] 1.023 (1.001-1.035) Urine Protein 3+ H (Negative) mg/dL Urine Glucose (UA) Negative (Negative) mg/dL
--- NOTE | 2025-11-16 14:00 | P.PNCA_ITS ---
Progress Note: A&P Assessment and Plan (1) Infective endocarditis: Code(s): I33.0 - Acute and subacute infective endocarditis <Daniela Dickson APRN - Last Filed: 11/16/25 14:39> Status: Acute <Daniela Dickson APRN - Last Filed: 11/16/25 14:39> Assessment and Plan: * patient echo reviewed with Dr. Dhaliwal and Dr. Osborne. 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 UDS is pending * Have spoke with hospitalist and they have consulted ID for antibiotic management * addendum at 1439 * discussion had with Dr. Osborne regarding possible IV heparin, but given that [facility] has accepted at [facility] will hold off and await transfer and their recommendations <Daniela Dickson APRN - Last Filed: 11/16/25 14:39> * patient echo reviewed with Dr. Dhaliwal and Dr. Osborne. 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 UDS is pending * Have spoke with hospitalist and they have consulted ID for antibiotic management * No heparin as patient has not had head CT, he has anemia with Hg of 7, some evidence of septic emboli (petechiae in lower extremities) and infection not ruled out <Yelena Osborne MD - Last Filed: 11/16/25 15:19> Subjective Date/time seen: 11/16/25 14:00 <Daniela Dickson APRN - Last Filed: 11/16/25 14:39> Objective Data Vital Signs Vital Signs: Vital Signs - 24 hr 11/15/25 14:15 11/15/25 14:16 11/15/25 14:25 Temperature Pulse Rate 104 H 103 H 97 Respiratory Rate 20 31 H 15 Blood Pressure 128/47 L 123/44 L Pulse Oximetry 99 99 100 Oxygen Delivery 11/15/25 14:30 11/15/25 15:05 11/15/25 16:30 Temperature 36.7 C Pulse Rate 109 H 103 H 132 H Respiratory Rate 24 H 31 H 20 Blood Pressure 137/53 L 125/44 L 123/40 L Pulse Oximetry 100 100 Oxygen Delivery 11/15/25 16:34 11/15/25 18:00 11/15/25 20:00 Temperature Pulse Rate 98 Respiratory Rate Blood Pressure Pulse Oximetry Oxygen Delivery Room Air Room Air 11/15/25 20:00 11/15/25 21:01 11/15/25 22:00 Temperature 36.9 C Pulse Rate 99 105 H 103 H Respiratory Rate 16 Blood Pressure 127/48 L Pulse Oximetry 96 Oxygen Delivery 11/16/25 00:00 11/16/25 00:00 11/16/25 00:29 Temperature 37.7 C H Pulse Rate 108 H 108 H Respiratory Rate 20 Blood Pressure 146/48 H Pulse Oximetry 96 Oxygen Delivery Room Air 11/16/25 02:00 11/16/25 04:00 11/16/25 04:00 Temperature Pulse Rate 106 H 99 Respiratory Rate Blood Pressure Pulse Oximetry Oxygen Delivery Room Air 11/16/25 06:00 11/16/25 06:50 11/16/25 07:49 Temperature 37.2 C 36.9 C Pulse Rate 101 H 106 H 108 H Respiratory Rate 18 20 Blood Pressure 146/62 H 128/46 L Pulse Oximetry 98 100 Oxygen Delivery 11/16/25 08:00 11/16/25 10:00 11/16/25 11:33 Temperature 36.4 C L Pulse Rate 106 H 103 H 97 Respiratory Rate 20 Blood Pressure 110/63 Pulse Oximetry 100 Oxygen Delivery <Daniela Dickson SUG[employer]UCKER - Last Filed: 11/16/25 14:39> Intake/Output Intake/Output: Intake & Output 11/13/25 11/14/25 11/15/25 11/16/25 23:59 23:59 23:59 23:59 Intake Total 480 2440 Output Total 300 777 Balance 180 1663 <Daniela Dickson, [employer]ER - Last Filed: 11/16/25 14:39> Meds/Results Medications: Active Medications Generic Name Dose Route Start Last Admin Trade Name Freq PRN Reason Stop Dose Admin Furosemide 40 mg 11/16/25 09:00 11/16/25 08:28 Furosemide Inj 40 Mg/4 Ml Vial IV PUSH 40 mg BID DEMARIO Administration Heparin Sodium (Porcine) 0 units 11/16/25 13:55 Heparin Sodium 5,000 Units/Ml Vial IV PUSH PRN PRN aPTT less than 55 seconds Heparin Sodium (Porcine) 0 units 11/16/25 13:55 Heparin Sodium 5,000 Units/Ml Vial IV PUSH PRN PRN aPTT 55 - 70 seconds Heparin Sodium/Dextrose 25,000 units in 250 mls @ 14.148 mls/hr 11/16/25 13:55 Heparin Sodium/D5w 100 Units/Ml IV CONT .[id number] DEMARIO Protocol 18 UNITS/KG/HR Miscellaneous Information 1 each 11/16/25 13:55 Pharmacist Communication Order XX 11/16/25 13:56 ONCE ONE Nicotine 1 patch 11/16/25 04:30 11/16/25 04:39 Nicotine (*Pbkc) 14 Mg Patch TRANSDERM 1 patch DAILY DEMARIO Administration Ondansetron HCl 4 mg 11/15/25 23:18 11/15/25 23:55 Ondansetron Inj 4 Mg/2 Ml Vial IV PUSH 4 mg Q6H PRN Administration Nausea And Vomiting Perflutren Lipid Microsphere 0 ml 11/15/25 15:37 Perflutren Lipid Microspheres 1.5 Ml Vial Diluted To 10 Ml Total Volume IV PUSH 11/18/25 15:37 ONCE PRN adequate visualization Protocol <Daniela Dickson, SUGAR [employer]UCKER - Last Filed: 11/16/25 14:39> Radiology Results: ITS Impressions Chest X-Ray 11/15/25 13:11 IMPRESSION: 1. Pericardial effusion and/or cardiomegaly. 2. Interstitial pulmonary edema. Chest/Abdomen/Pelvis CTA 11/15/25 13:44 IMPRESSION: 1. Negative for pulmonary embolism. CHF with probable fluid overload. 2. No acute intra-abdominal process. 3. Incidental findings above Venous Doppler Study 11/15/25 13:49 Impression: Negative for DVT. <Daniela Dickson [employer]ER - Last Filed: 11/16/25 14:39> Labs Labs: Laboratory Results - last 24 hr 11/15/25 11/15/25 11/15/25 12:41 13:47 15:34 WBC RBC Hgb Hct MCV MCH MCHC RDW Plt Count MPV Immature Gran % (Auto) Neut % (Auto) Lymph % (Auto) [place] % (Auto) Eos % (Auto) Baso % (Auto) Lymph # (Auto) [place] # (Auto) Eos # (Auto) Baso # (Auto) Abs Immat Gran (auto) Absolute Neuts (auto) Absolute Nucleated RBC Band Neutrophils % Nucleated RBC % Platelet Estimate Hypochromasia Ovalocytes Rufus Cells Schistocytes Sodium Potassium Chloride Carbon Dioxide Anion Gap BUN Creatinine Estim Creat Clear Calc Estimated GFR Glucose Calcium Troponin I 0.046 H* TSH (Reflex) 3.650 Urine Color Dark yellow Urine Appearance Clear Urine pH 5.5 Ur Specific [place] 1.023 Urine Protein 3+ H Urine Glucose (UA) Negative Urine Ketones Trace H Ur Blood (Man) 3+ H Urine Nitrate Negative Urine Bilirubin 1+ H Urine Urobilinogen 1.0 Add Ur Microanalysis Reviewed Leukocyte Esterase Rfl Negative Urine RBC 21-50 H Urine WBC 6-10 H Ur Squamous Epith Cells Occasional Urine Bacteria None seen Urine Casts 3-5 Hepatitis A IgM Ab Negative Hep Bs Antigen Negative Hep B Core IgM Ab Negative Hepatitis C Ab Screen Negative Influenza A (RT-PCR) Negative Influenza B (RT-PCR) Negative RSV (RT-PCR) Negative SARS-CoV-2 RNA (RT-PCR) Negative 11/15/25 11/16/25 19:09 04:31 WBC 4.5 RBC 3.36 L Hgb 7.6 L Hct 25.4 L MCV 75.6 L MCH 22.6 L MCHC 29.9 L RDW 18.9 H Plt Count 168 MPV 9.3 Immature Gran % (Auto) 0.7 H Neut % (Auto) 70.2 Lymph % (Auto) 22.6 [place] % (Auto) 5.1 Eos % (Auto) 0.7 Baso % (Auto) 0.7 Lymph # (Auto) 1.01 [place] # (Auto) 0.2 Eos # (Auto) 0.0 Baso # (Auto) 0.0 Abs Immat Gran (auto) 0.03 Absolute Neuts (auto) 3.1 Absolute Nucleated RBC 0.000 Band Neutrophils % Not Reportable Nucleated RBC % 0.0 Platelet Estimate Adequate Hypochromasia 1+ Ovalocytes 1+ Rufus Cells 1+ Schistocytes None seen Sodium 126 L Potassium 5.2 H Chloride 101 Carbon Dioxide 20 L Anion Gap 5 BUN 17 Creatinine 1.07 Estim Creat Clear Calc 87 Estimated GFR > 60 Glucose 97 Calcium 7.4 L Troponin I 0.043 H* TSH (Reflex) Urine Color Urine Appearance Urine pH Ur Specific [place] Urine Protein Urine Glucose (UA) Urine Ketones Ur Blood (Man) Urine Nitrate Urine Bilirubin Urine Urobilinogen Add Ur Microanalysis Leukocyte Esterase Rfl Urine RBC Urine WBC Ur Squamous Epith Cells Urine Bacteria Urine Casts Hepatitis A IgM Ab Hep Bs Antigen Hep B Core IgM Ab Hepatitis C Ab Screen Influenza A (RT-PCR) Influenza B (RT-PCR) RSV (RT-PCR) SARS-CoV-2 RNA (RT-PCR) <Daniela Dickson, SUGAR TRUCKER - Last Filed: 11/16/25 14:39>
[2025-11-16 14:26] LABS: Hematocrit 26.2 % (42.0-52.0); Hemoglobin 8.1 g/dL (14.0-18.0); Immature Granulocyte Percent A 0.8 % (0-0.5); Lymphocytes Absolute Auto 0.92 K/mm3 (0.9-3.2); Mean Corpuscular HGB Conc 30.9 g/dl (32-36); Mean Corpuscular Hemoglobin 22.8 pg (26-34); Mean Corpuscular Volume 73.8 fl (80-100); Nucleated Red Blood Cells Absolute Auto 0.000 K/mm3 (0.0-0.012); Nucleated Red Blood Cells Perc 0.0 % (0.0-0.2); Platelet Count Result 171 k/mm3 (150-375); Red Blood Count 3.55 M/mm3 (4.6-6.20); White Blood Count 4.8 K/mm3 (4.5-10.0)
[2025-11-16 15:02] LABS: INR 1.4; Prothrombin Time 17.6 Seconds (11.1-14.7)
[2025-11-16 15:03] LABS: Partial Thromboplastin Time 33.1 Seconds (22.3-36.8)
[2025-11-16 15:05] LABS: Burr Cells 1+; Hypochromasia 1+; Microcytosis 1+ (NORMAL); Schistocytes None Seen
[2025-11-16 15:33] LABS: IFOB Positive Control Positive; Immunochemical Fecal Occult Bl Negative (N)
[2025-11-16] MEDS: cefTRIAXone 2 GM in SODIUM CHLORIDE 0.9% IV 100 ML 200 ML IVPB (15:59)
[2025-11-16] MEDS: VANCOMYCIN 2,000 MG/NS 500 ML 2,000 MG/500 ML BAG 250 MG IVPB (16:37)
[2025-11-16 17:05] LABS: Syphilis IgG/IgM Antibody Non-Reactive (Nonreactive)
[2025-11-16 17:16] LABS: HIV 1/2 Ab P24 Ag Result Negative (Negative)
[2025-11-16 18:14] LABS: Cannabinoid Screen Urine Positive (Negative)
--- NOTE | 2025-11-16 22:07 | PC.NURSE ---
Report given to TATUM Resendez at [facility]. Pt to go to room 1209 bed A.
--- NOTE | 2025-11-16 22:59 | PC.NURSE ---
Pt transported by EMS. Pt was sent to [facility] with IV intact. Report given to TATUM Resendez at [facility] and given to EMS. All paperwork and pt belongings sent with pt. Pt's dad (Anton) notified of pt being transferred and room number. Tele monitor removed and cleaned.
--- NOTE | 2025-11-18 16:19 | PM.TDS ---
Transfer Discharge Sum: Prov Provider Date of admission: 11/16/25 10:35 Primary care physician: [employer] PHYSICIAN Admitting clinician: Joseph Aviles MD Consults: 11/15/25 Consult to Physician Routine Comment: Consulting Provider: Yelena Osborne Reason for consultation: New CHF Has provider been notified: Yes 11/16/25 09:07 Consult to Physician Routine Comment: Called the lab and notified them of consult Consulting Provider: Boris Yan web retailer/MD group to consult: GI Reason for consultation: Anemia Has provider been notified: Yes 11/16/25 13:42 Consult to Physician Routine Comment: Called exchange and notified them of consult Consulting Provider: Lenore Patel web retailer/MD group to consult: ID Reason for consultation: Infective Endocarditis Has provider been notified: Yes 11/16/25 13:47 Consult Infectious Disease Pharmacist Routine Comment: Initiate coordination of ID Physician consult. DS: Admitting Diagnosis Discharge Date 11/16/25 Admitting Diagnosis SOB DS: Discharge Diagnosis Discharge Diagnosis (1) New onset of congestive heart failure: Code(s): I50.9 - Heart failure, unspecified Status: Acute Assessment and Plan: Imaging reveals fluid overload. 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 - monitor I&Os - trend renal function -order blood culture, lactic acid, HIV, syphilis -ordered PT, PTT and INR -hepatitis panel negative -will start on vancomycin and ceftriaxone -ID consulted -transfer to tertiary care center (2) Infective endocarditis: Code(s): I33.0 - Acute and subacute infective endocarditis Status: Acute Assessment and Plan: Same as above (3) Purpura: Code(s): D69.2 - Other nonthrombocytopenic purpura Status: Acute Assessment and Plan: -no evidence of bleeding -hemoglobin 8.1, platelet 171 -if necessary will give steroid -no evidence of TTP and DIC -order blood culture, lactic acid, HIV, syphilis -ordered PT, PTT and INR -hepatitis panel negative Transfer Discharge Sum: Med Medications Active and Home Medications: Home Medications No Home Medications 11/15/25 [History Confirmed 11/15/25] Transfer Discharge Sum: Hosp Hospital Course Hospital course: Feng Nieto is 25 year old male with no past medical history presents to the ED on 11/15/25 with complaints of bilateral lower extremity swelling and dyspnea. He initially presented to [facility] but was directed to the ED for further care. Patient patient additionally reports abdominal distention and some right upper quadrant pain that has been ongoing for and unknown amount of time. His lower extremity and abdominal swelling has increased over the past couple of weeks. He now has some dyspnea on exertion. Petechiae noted throughout bilateral lower extremities. Patient states it has been there for a while. Denies fever, chest pain. Patient is adopted and unsure of his family medical history. Initial vital signs 138/34, 102 HR, respirations 18, afebrile and 99% on room air. CBC without leukocytosis. Microcytic anemia with hemoglobin of 7.6. CMP with no concerning findings. EKG with nonspecific ST changes. [place]roponin [place] elevated [place] 0.[place] [address]. CTA chest PE with abdomen pelvis without PE. Shows CHF with fluid overload. Venous Doppler without evidence for DVT. Patient has evidence of fluid overload, purpura on bilateral lower extremity and anemia. UDS positive for cannabis. Hepatitis panel negative. Elevated troponin and BNP. Reviewed anemia panel. Consulted GI. Echocardiogram reveals vegetation. Consulted ID. Hepatitis panel negative. Ordered blood culture, lactic acid, HIV, syphilis, PT, PTT, INR. Patient will be transferred to [facility] for further management. Patient denies any IV drug abuse. Patient Condition: Gaurded Prognosis Time Spent with Patient Time attestation: Total time spent providing and/or coordinating transfer services:45 minutes Exam Narrative: GENERAL: appears ill HEAD: Normocephalic, atraumatic. EYES: PERRLA. Conjunctivae clear. NOSE: Normal no drainage. THROAT: Pharynx clear, no exudate. NECK: Trachea midline. No adenopathy, no masses. RESPIRATORY: Airway patent, respirations nonlabored. rales noted. CARDIOVASCULAR: tachycardia with regular rhythm GASTROINTESTINAL: Abdomen is firm on palpation. No organomegaly. Bowel sounds normal in all quadrants. GENITOURINARY: Defer MUSCULOSKELETAL: Moves all extremities. +2 pitting edema bilateral lower extremities. Petechiae throughout both legs SKIN: Warm, dry, normal color. NEURO: A&O X4. Speech clear PSYCHIATRIC: withdrawn DS: Data Data Completed and Pending Labs on day of discharge: Preliminary micro results at discharge 11/16/25 12:27 Blood Culture - Preliminary Blood 11/16/25 12:31 Blood Culture - Preliminary Blood Imaging Radiologist's impression: ITS Impressions Chest X-Ray 11/15/25 13:11 IMPRESSION: 1. Pericardial effusion and/or cardiomegaly. 2. Interstitial pulmonary edema. Chest/Abdomen/Pelvis CTA 11/15/25 13:44 IMPRESSION: 1. Negative for pulmonary embolism. CHF with probable fluid overload. 2. No acute intra-abdominal process. 3. Incidental findings above Venous Doppler Study 11/15/25 13:49 Impression: Negative for DVT.
== END 2025-11-16 23:07 | disposition short-term general hospital (02) | DRG 193 ==
LOC: ANHED 13:10 → ANHIMU 15:26
PROVIDERS: Emergency Medicine; Nurse Practitioner Adult Health; Nurse Practitioner Family; Admitting Provider Internal Medicine; Emergency Provider Physician Assistant; Visit Provider General Practice
DX: I33.0 Acute and subacute infective endocarditis (principal); I50.9 Heart failure, unspecified; I31.39 Other pericardial effusion (noninflammatory); D69.2 Other nonthrombocytopenic purpura; D64.9 Anemia, unspecified; F17.210 Nicotine dependence, cigarettes, uncomplicated; Z20.822 Contact with and (suspected) exposure to COVID-19
CPT/HCPCS: 36415; 71046; 71275; 74177; 80048; 80053; 80074; 80307; 81001; 82140; 82248; 82274; 83605; 83690; 83880; 84443; 84484; 85025; 85610; 85730; 86308; 86593; 86703; 87040; 87086; 87637; 93005; 93306; 93970; 96374; 96375; 99285; A9270; G0378; G0432; J0696; J1938; J2405; J3373; Q9967